=== PATIENT | male | born 1950 | race Caucasian/White ===

== ENCOUNTER → 2016-05-14 | Outpatient (CLI) | payer BC ==
[~2016-05-14] MED LIST: BISA-13 PO; HYDR-2616 PO; OME20GT; QUET200T44 PO; TIMO0.5S32 OP; [UNRECOGNIZED DRUG - CODE] IT
[2016-05-14 09:42] LABS: Basophils # (auto) 0 uL; Basophils % (auto) 0.4 % (0.0-2.0); Eosinophils # (auto) 0.3 uL; Eosinophils % (auto) 4.2 % (0.0-7.0); Hematocrit 49.8 % (41.0-53.0); Hemoglobin 16.3 g/dL (13.5-17.5); Lymphocytes # (auto) 2.7 uL; Lymphocytes % (auto) 33.4 % (10.0-50.0); Mean Corpuscular Hemoglobin 30.7 pg (28.0-32.0); Mean Corpuscular Hgb Conc. 32.8 g/dL (32.0-36.0); Mean Corpuscular Volume 93.8 fL (80.0-100.0); Mean Platelet Volume 8.8 fL (7.4-10.4); Monocytes # (auto) 0.5 uL; Monocytes % (auto) 5.6 % (0.0-12.0); Neutrophils # (auto) 4.6 uL; Neutrophils % (auto) 56.4 % (37.0-80.0); Platelet Count (auto) 255 10^3/uL (140-450); Red Cell Distribution Width 14.4 % (11.6-16.0); White Blood Cell 8.1 10^3/uL (4.4-10.8)
[2016-05-14 09:46] LABS: Urine Bilirubin Negative (Negative); Urine Blood Negative /uL (Negative); Urine Color Yellow (Yellow); Urine Glucose Normal (Normal); Urine Ketone Negative (Negative); Urine Nitrite Negative (Negative); Urine RBC 1 /hpf (0 - 3); Urine Urobilinogen Normal (Negative); Urine pH 6.5 (5.0-8.0)
[2016-05-14 10:24] LABS: Albumin 3.9 g/dL (3.4-5.0); BUN/Creatinine Ratio 11.7; Bilirubin, Total 0.4 mg/dL (0.2-1.0); Calcium 9.5 mg/dL (8.5-10.1); Potassium 4.1 mmol/L (3.5-5.1); Total Protein 7.7 g/dL (6.4-8.2)
== END | disposition home or self-care (01) ==
LOC: LAB 08:53
PROVIDERS: ATTEND Family Medicine
DX: M54.5 Low back pain (principal); Z00.00 Encounter for general adult medical examination without abnormal findings
CPT/HCPCS: 36415; 80053; 80061; 81001; 82607; 84155; 84165; 85025; 85049

== ENCOUNTER → 2017-02-10 | Outpatient (CLI) | payer BC | END | disposition home or self-care (01) | LOC: LAB 10:52 | PROVIDERS: ATTEND Family Medicine | DX: Z12.11 Encounter for screening for malignant neoplasm of colon (principal); J44.9 Chronic obstructive pulmonary disease, unspecified | CPT/HCPCS: 82270 ==

== ENCOUNTER → 2018-02-27 | Outpatient (CLI) | payer BC ==
[2018-02-27 09:46] LABS: Urine Bacteria NONE SEEN /hpf (None Seen); Urine Blood TRACE /uL (Negative); Urine Specific Gravity 1.014 (1.001-1.035); Urine WBC <1 /hpf (0 - 3)
[2018-02-27 09:47] LABS: Basophils # (auto) 0 uL; Basophils % (auto) 0.5 % (0.0-2.0); Eosinophils # (auto) 0.2 uL; Eosinophils % (auto) 3.5 % (0.0-7.0); Hematocrit 50.8 % (41.0-53.0); Lymphocytes # (auto) 2.3 uL; Lymphocytes % (auto) 34.9 % (10.0-50.0); Mean Corpuscular Hgb Conc. 33.4 g/dL (32.0-36.0); Mean Corpuscular Volume 95.9 fL (80.0-100.0); Monocytes # (auto) 0.4 uL; Monocytes % (auto) 6.2 % (0.0-12.0); Neutrophils # (auto) 3.7 uL; Neutrophils % (auto) 54.9 % (37.0-80.0); Platelet Count (auto) 235 10^3/uL (140-450); Red Blood Cells 5.29 10^6/uL (4.5-5.90); Red Cell Distribution Width 13.8 % (11.8-14.3); White Blood Cell 6.7 10^3/uL (4.4-10.8)
[2018-02-27 12:35] LABS: Albumin 3.7 g/dL (3.4-5.0); Calcium 9.5 mg/dL (8.5-10.1); Potassium 4.3 mmol/L (3.5-5.1)
[2018-02-27 12:47] LABS: BUN/Creatinine Ratio 18.4; Bilirubin, Total 0.3 mg/dL (0.2-1.0); Total Protein 8.3 g/dL (6.4-8.2)
== END | disposition home or self-care (01) ==
LOC: LAB 09:21
PROVIDERS: ATTEND Family Medicine
DX: K21.9 Gastro-esophageal reflux disease without esophagitis (principal); F17.200 Nicotine dependence, unspecified, uncomplicated
CPT/HCPCS: 36415; 80053; 80061; 81001; 84153; 85025

== ENCOUNTER 2019-01-14 06:05 | Day surgery (SDC) | payer BC ==
[2019-01-11 10:39] LABS: Urine WBC None Seen /hpf (0 - 3)
[2019-01-11 11:04] LABS: Basophils # (auto) 0.1 uL; Basophils % (auto) 0.7 % (0.0-2.0); Eosinophils # (auto) 0.1 uL; Eosinophils % (auto) 1.9 % (0.0-7.0); Hematocrit 47.2 % (41.0-53.0); Hemoglobin 16.1 g/dL (13.5-17.5); Lymphocytes # (auto) 1.7 uL; Lymphocytes % (auto) 22.7 % (10.0-50.0); Mean Corpuscular Hemoglobin 32.7 pg (28.0-32.0); Mean Corpuscular Hgb Conc. 34.2 g/dL (32.0-36.0); Mean Corpuscular Volume 95.6 fL (80.0-100.0); Monocytes # (auto) 0.5 uL; Monocytes % (auto) 6.4 % (0.0-12.0); Neutrophils # (auto) 5.2 uL; Neutrophils % (auto) 68.3 % (37.0-80.0); Nucleated Red Blood Cells % 0.1 %; Platelet Count (auto) 226 10^3/uL (140-450); Red Blood Cells 4.93 10^6/uL (4.5-5.90); Red Cell Distribution Width 13.5 % (11.8-14.3); White Blood Cell 7.6 10^3/uL (4.4-10.8)
[2019-01-11 11:17] LABS: Potassium 3.8 mmol/L (3.5-5.1)
[2019-01-11 11:20] LABS: INR < 0.93 (0.9-1.15); Partial Thromboplastin Time 27.7 sec (23.64-32.05)
[2019-01-11 11:23] LABS: Albumin 3.6 g/dL (3.4-5.0); BUN/Creatinine Ratio 11.6; Bilirubin, Total 0.3 mg/dL (0.2-1.0); Calcium 8.9 mg/dL (8.5-10.1); Total Protein 7.9 g/dL (6.4-8.2)
[2019-01-11 11:35] LABS: Urine Bacteria NONE SEEN /hpf (None Seen); Urine Blood TRACE /uL (Negative); Urine Specific Gravity 1.013 (1.001-1.035)
[~2019-01-14] VITALS: Ht 162.6 cm; Wt 68.0 kg
[~2019-01-14 06:05] MED LIST changes: -BISA-13 PO; +DOCU-94 PO; -HYDR-2616 PO; +HYDR1INJ IT; -OME20GT; -TIMO0.5S32 OP
[2019-01-14] MEDS ORDERED: ceFAZolin 1GM/50ML 100 ML IV ONE (06:51)
[2019-01-14] MEDS ORDERED: SUCCINYLCHOLINE CHLORIDE 20 MG/ML 10ML VIAL IV ONE (07:31)
[2019-01-14] MEDS ORDERED: LIDOCAINE 1% HCL (LOCAL ANESTH.) INJ 20ML MDV ONE (07:31)
[2019-01-14] MEDS ORDERED: LIDOCAINE W/ EPINEPHRINE 2% INJ 20ML VIAL ONE (07:32)
[2019-01-14] MEDS ORDERED: IOHEXOL 180 MG/ML 20ML VIAL IJ ONE (07:32)
[2019-01-14] MEDS ORDERED: IOHEXOL 300 MG/ML 100ML BOTTLE IJ ONE (07:33)
[2019-01-14] MEDS ORDERED: BUPIVACAINE W/ EPINEPH 0.25% INJ 50ML MDV ONE (07:33)
[2019-01-14] MEDS ORDERED: MORPHINE SULF(PF) 0.5MG/ML 10ML VIAL ONE (07:39)
[2019-01-14] MEDS ORDERED: VANCOMYCIN HCL 1000 MG VL ONE (07:42)
[2019-01-14] MEDS ORDERED: MIDAZOLAM HCL 1MG/1ML-2 ML VIAL ONE (07:55)
[2019-01-14] MEDS ORDERED: METOCLOPRAMIDE HCL 5MG/ml INJ 2ml VIAL ONE (07:56)
[2019-01-14] MEDS ORDERED: diphenhdrAMINE HCL 50 MG/1 ML VL ONE (07:56)
[2019-01-14] MEDS ORDERED: GLYCOPYRROLATE 0.2 MG/ML 1ML VIAL ONE (07:58)
[2019-01-14] MEDS ORDERED: PROPOFOL 10 MG/ML 20 ML IV ONE (07:59)
[2019-01-14] MEDS ORDERED: ceFAZolin 1GM VL ONE (08:14)
[2019-01-14] MEDS ORDERED: ePHEDrine SULFATE 50 MG/ML AMP ONE (08:17)
[2019-01-14] MEDS ORDERED: STERILE WATER 10 ML ONE ×2 (08:17→08:27)
[2019-01-14] MEDS ORDERED: PHENYLEPHRINE HCL 10 MG/ML VL ONE (08:27)
[2019-01-14] MEDS ORDERED: HYDROmorphone HCL 2 MG/ML VL IV PRN (08:45)
[2019-01-14] MEDS ORDERED: NALOXONE HCL 0.4 MG/ML VIAL IV PRN (08:45)
[2019-01-14] MEDS ORDERED: ONDANSETRON HCL 4 MG/2 ML VIAL IV PRN (08:45)
[2019-01-14] MEDS ORDERED: HYDROmorphone HCL 2 MG/ML VL IV ONE (10:06)
[2019-01-14] MEDS ORDERED: BACLOFEN 10 MG TAB PO ONE (10:23)
[2019-01-14] MEDS: HYDROmorphone HCL 2 MG/ML VL IV PRN ×4 (10:28→11:15)
[2019-01-14] MEDS ORDERED: GABAPENTIN 400 MG CAP PO ONE (11:15)
[2019-01-14] MEDS ORDERED: DexAMETHasone SOD PHOS 10MG/1ML VIAL INJ IM ONE (12:00)
[2019-01-14 12:08] VITALS: BP 113/63
== END 2019-01-14 12:40 | disposition home or self-care (01) ==
LOC: SUR 06:05
PROVIDERS: ATTEND Anesthesiology Pain Medicine
DX: Z45.49 Encounter for adjustment and management of other implanted nervous system device (principal); T85.610A Breakdown (mechanical) of cranial or spinal infusion catheter, initial encounter; M96.1 Postlaminectomy syndrome, not elsewhere classified; M54.40 Lumbago with sciatica, unspecified side; M06.9 Rheumatoid arthritis, unspecified; I25.10 Atherosclerotic heart disease of native coronary artery without angina pectoris; F32.9 Major depressive disorder, single episode, unspecified; F17.210 Nicotine dependence, cigarettes, uncomplicated; Z88.8 Allergy status to other drugs, medicaments and biological substances
CPT/HCPCS: 36415; 62350; 62362; 62370; 72100; 80053; 81001; 85025; 85610; 85730; 93005; C1772; J0330; J0690; J1170; J1200; J2001; J2250; J2270; J2370; J2704; J2765; J3370; J7030; Q9967; 76000; A4565; Q9965

== ENCOUNTER → 2019-10-26 | Outpatient (CLI) | payer BC ==
[2019-10-26 08:09] LABS: Urine WBC None Seen /hpf (0 - 3)
[2019-10-26 08:25] LABS: Urine Bacteria NONE SEEN /hpf (None Seen); Urine Blood TRACE /uL (Negative); Urine Specific Gravity 1.007 (1.001-1.035)
[2019-10-26 08:31] LABS: Basophils # (auto) 0 10 ^3/uL (0-0.2); Basophils % (auto) 0.6 % (0.0-2.0); Eosinophils # (auto) 0.3 10 ^3/uL (0-0.8); Eosinophils % (auto) 4.8 % (0.0-7.0); Hemoglobin 16.6 g/dL (13.5-17.5); Lymphocytes # (auto) 2.2 10 ^3/uL (0.4-5.4); Lymphocytes % (auto) 37.6 % (10.0-50.0); Mean Corpuscular Hemoglobin 31.5 pg (28.0-32.0); Mean Corpuscular Hgb Conc. 33.1 g/dL (32.0-36.0); Mean Corpuscular Volume 95.1 fL (80.0-100.0); Monocytes # (auto) 0.4 10 ^3/uL (0-1.3); Monocytes % (auto) 7.3 % (0.0-12.0); Neutrophils # (auto) 2.9 10 ^3/uL (1.6-8.6); Neutrophils % (auto) 49.7 % (37.0-80.0); Nucleated Red Blood Cells % 0.1 %; Platelet Count (auto) 262 10^3/uL (140-450); Red Blood Cells 5.26 10^6/uL (4.5-5.90); Red Cell Distribution Width 14.2 % (11.8-14.3); White Blood Cell 5.8 10^3/uL (4.4-10.8)
[2019-10-26 08:39] LABS: Potassium 4.1 mmol/L (3.5-5.1)
[2019-10-26 08:46] LABS: Albumin 3.4 g/dL (3.4-5.0); BUN/Creatinine Ratio 9.1; Bilirubin, Total 0.4 mg/dL (0.2-1.0); Calcium 9.1 mg/dL (8.5-10.1); Total Protein 7.9 g/dL (6.4-8.2)
[2019-10-26 09:11] LABS: INR 0.95 (0.9-1.15); Partial Thromboplastin Time 27.9 sec (23.64-32.05)
== END | disposition home or self-care (01) ==
LOC: LAB 07:20
PROVIDERS: ATTEND Family Medicine
DX: Z01.818 Encounter for other preprocedural examination (principal); H25.11 Age-related nuclear cataract, right eye
CPT/HCPCS: 36415; 80053; 81001; 85025; 85610; 85730

== ENCOUNTER → 2020-06-22 | Outpatient (CLI) | payer BC | END | disposition home or self-care (01) | LOC: XYW 09:53 | PROVIDERS: ATTEND Family Medicine | DX: M51.34 Other intervertebral disc degeneration, thoracic region (principal); M48.04 Spinal stenosis, thoracic region; M51.26 Other intervertebral disc displacement, lumbar region; M48.061 Spinal stenosis, lumbar region without neurogenic claudication; M25.78 Osteophyte, vertebrae; M43.8X4 Other specified deforming dorsopathies, thoracic region; M48.54XA Collapsed vertebra, not elsewhere classified, thoracic region, initial encounter for fracture; M54.40 Lumbago with sciatica, unspecified side; M96.1 Postlaminectomy syndrome, not elsewhere classified; Z98.1 Arthrodesis status | CPT/HCPCS: 72146; 72148 ==

== ENCOUNTER 2020-06-23 09:08 | Emergency (ER) | payer BC ==
[~2020-06-23] VITALS: Ht 162.6 cm; Wt 63.5 kg
[~2020-06-23 09:08] MED LIST changes: -QUET200T44 PO; +QUET200T45 PO
[2020-06-23 09:35] LABS: Basophils # (auto) 0.1 10 ^3/uL (0-0.2); Basophils % (auto) 1.4 % (0.0-2.0); Eosinophils # (auto) 0.1 10 ^3/uL (0-0.8); Hematocrit 45.3 % (41.0-53.0); Hemoglobin 15.6 g/dL (13.5-17.5); Lymphocytes # (auto) 1.3 10 ^3/uL (0.4-5.4); Mean Corpuscular Hemoglobin 31.8 pg (28.0-32.0); Mean Corpuscular Hgb Conc. 34.5 g/dL (32.0-36.0); Mean Corpuscular Volume 92.2 fL (80.0-100.0); Monocytes # (auto) 0.5 10 ^3/uL (0-1.3); Monocytes % (auto) 7.5 % (0.0-12.0); Neutrophils # (auto) 4.2 10 ^3/uL (1.6-8.6); Neutrophils % (auto) 68.1 % (37.0-80.0); Nucleated Red Blood Cells % 0.1 %; Red Blood Cells 4.92 10^6/uL (4.5-5.90); Red Cell Distribution Width 14.5 % (11.8-14.3); White Blood Cell 6.1 10^3/uL (4.4-10.8)
[2020-06-23 09:53] LABS: Albumin 3.4 g/dL (3.4-5.0); Calcium 8.9 mg/dL (8.5-10.1); Potassium 3.6 mmol/L (3.5-5.1)
[2020-06-23 09:56] LABS: BUN/Creatinine Ratio 8.7; Bilirubin, Total 0.3 mg/dL (0.2-1.0); Total Protein 7.6 g/dL (6.4-8.2)
[2020-06-23 11:47] VITALS: BP 36/75
== END 2020-06-23 11:43 | disposition home or self-care (01) ==
LOC: ER 09:08
DX: M54.5 Low back pain (principal); G89.29 Other chronic pain; F17.210 Nicotine dependence, cigarettes, uncomplicated; J44.9 Chronic obstructive pulmonary disease, unspecified; Z79.899 Other long term (current) drug therapy
CPT/HCPCS: 36415; 74176; 80053; 85025; 93005

== ENCOUNTER 2021-02-26 16:44 | Emergency (ER) | payer BC, MEDICARE ==
[~2021-02-26] VITALS: Ht 162.6 cm; Wt 74.8 kg
[2021-02-26 18:59] VITALS: BP 140/96
== END 2021-02-26 21:33 | disposition home or self-care (01) ==
LOC: EDBD 16:44 → ER 16:44
DX: S01.95XA Open bite of unspecified part of head, initial encounter (principal); M54.2 Cervicalgia; M54.9 Dorsalgia, unspecified; J44.9 Chronic obstructive pulmonary disease, unspecified; F17.210 Nicotine dependence, cigarettes, uncomplicated; Y04.1XXA Assault by human bite, initial encounter; Y93.89 Activity, other specified; Y92.89 Other specified places as the place of occurrence of the external cause; Y99.8 Other external cause status
CPT/HCPCS: 70450; 72125

== ENCOUNTER → 2021-07-19 | Outpatient (CLI) | payer BC ==
[2021-07-19 08:23] LABS: Basophils # (auto) 0 10 ^3/uL (0-0.2); Basophils % (auto) 0.2 % (0.0-2.0); Eosinophils # (auto) 0.2 10 ^3/uL (0-0.8); Hemoglobin 15.6 g/dL (13.5-17.5); Lymphocytes # (auto) 0.6 10 ^3/uL (0.4-5.4); Mean Corpuscular Hemoglobin 30.7 pg (28.0-32.0); Mean Corpuscular Hgb Conc. 33.9 g/dL (32.0-36.0); Mean Corpuscular Volume 90.6 fL (80.0-100.0); Monocytes # (auto) 0.2 10 ^3/uL (0-1.3); Monocytes % (auto) 3.9 % (0.0-12.0); Neutrophils # (auto) 4.1 10 ^3/uL (1.6-8.6); Neutrophils % (auto) 79.9 % (37.0-80.0); Nucleated Red Blood Cells % 0.1 %; Red Blood Cells 5.08 10^6/uL (4.5-5.90); White Blood Cell 5.1 10^3/uL (4.4-10.8)
[2021-07-19 09:19] LABS: Albumin 3.4 g/dL (3.4-5.0); Potassium 4.2 mmol/L (3.5-5.1)
[2021-07-19 09:27] LABS: BUN/Creatinine Ratio 10.8; Bilirubin, Total 0.3 mg/dL (0.2-1.0); Calcium 9.2 mg/dL (8.5-10.1); Total Protein 7.7 g/dL (6.4-8.2)
== END | disposition home or self-care (01) ==
LOC: LAB 07:53
PROVIDERS: ATTEND Student in an Organized Health Care Education/Training Program
DX: Z01.812 Encounter for preprocedural laboratory examination (principal); Z12.11 Encounter for screening for malignant neoplasm of colon; I10 Essential (primary) hypertension; H25.11 Age-related nuclear cataract, right eye
CPT/HCPCS: 36415; 80053; 80061; 85025

== ENCOUNTER → 2021-11-12 | Outpatient (CLI) | payer BC | END | disposition home or self-care (01) | LOC: LAB 09:49 | PROVIDERS: ATTEND Student in an Organized Health Care Education/Training Program | DX: Z12.11 Encounter for screening for malignant neoplasm of colon (principal) | CPT/HCPCS: 82274 ==

== ENCOUNTER 2022-04-08 08:56 | Emergency (ER) | payer BC ==
[~2022-04-08] VITALS: Ht 162.6 cm; Wt 73.7 kg
[2022-04-08 11:35] VITALS: BP 118/81
[2022-04-08] MEDS ORDERED: TETRACAINE HCL 0.5% OPTH(EYE) SOLN 4ML LEFTEYE ONE (12:00)
[2022-04-08] MEDS ORDERED: ERY05OO OP (12:38)
== END 2022-04-08 12:44 | disposition home or self-care (01) ==
LOC: ER 08:56
DX: S05.02XA Injury of conjunctiva and corneal abrasion without foreign body, left eye, initial encounter (principal); J44.9 Chronic obstructive pulmonary disease, unspecified; F17.210 Nicotine dependence, cigarettes, uncomplicated; Z79.2 Long term (current) use of antibiotics; Z79.899 Other long term (current) drug therapy; X58.XXXA Exposure to other specified factors, initial encounter; Y93.89 Activity, other specified; Y92.89 Other specified places as the place of occurrence of the external cause; Y99.8 Other external cause status

== ENCOUNTER 2023-09-05 23:16 | Inpatient (IN) | payer BC, MEDICARE ==
[~2023-09-05] VITALS: Ht 165.1 cm; Wt 77.0 kg
[~2023-09-05 23:16] MED LIST changes: +ERY05OO OP
[2023-09-06] VITALS (15 sets, daily range): BP systolic 121–160; BP diastolic 59–84; PULSE 56–75; RESP 16–21; TEMP 97.6–99; O2SAT 93–99
[2023-09-06] MEDS ORDERED: DOCUSATE SOD 100 MG CAP PO PRN (02:45)
[2023-09-06] MEDS ORDERED: ONDANSETRON HCL 4 MG/2 ML VIAL IV PRN (02:45)
[2023-09-06] MEDS ORDERED: MORPHINE SULFATE INJ 2 MG/ml SYRG IV PRN (02:45)
[2023-09-06] MEDS ORDERED: VANCOMYCIN PER PHARMACY 0 MG IV SCH (02:45)
[2023-09-06] MEDS ORDERED: ACETAMINOPHEN 325 MG TAB PO PRN (02:45)
[2023-09-06] MEDS ORDERED: NITROGLYCERIN 0.4 MG SL TAB SL PRN (02:45)
[2023-09-06] MEDS: SODIUM CHLORIDE 0.9% 1,000 ML IV ONE (04:00)
[2023-09-06] MEDS: VANCOMYCIN 1GM/200ML 200 ML IV ONE (06:50)
[2023-09-06] MEDS: PIPERACILLIN-TAZOB 3.375GM 100 ML IV ONE (06:53)
[2023-09-06] MEDS: IPRATROPIUM BROM 0.5 MG/2.5ML INH SOL NEB SCH (08:13)
[2023-09-06] MEDS: ALBUTEROL SULF 2.5 MG/0.5ML(0.5%) NEB SOLN NEB SCH (08:13)
[2023-09-06] MEDS: ENOXAPARIN SOD 40 MG/0.4 ML SYRINGE SC SCH (08:41)
[2023-09-06 11:56] LABS: Basophils # (auto) 0 10 ^3/uL (0-0.2); Basophils % (auto) 0.5 % (0.0-2.0); Eosinophils # (auto) 0.1 10 ^3/uL (0-0.8); Eosinophils % (auto) 1.8 % (0.0-7.0); Hemoglobin 13.2 g/dL (13.5-17.5); Lymphocytes # (auto) 1.1 10 ^3/uL (0.4-5.4); Lymphocytes % (auto) 13.9 % (10.0-50.0); Mean Corpuscular Hemoglobin 30.6 pg (28.0-32.0); Mean Corpuscular Hgb Conc. 32.9 g/dL (32.0-36.0); Mean Corpuscular Volume 93.1 fL (80.0-100.0); Monocytes # (auto) 0.5 10 ^3/uL (0-1.3); Monocytes % (auto) 6.3 % (0.0-12.0); Neutrophils # (auto) 6.4 10 ^3/uL (1.6-8.6); Neutrophils % (auto) 77.5 % (37.0-80.0); Nucleated Red Blood Cells % 0.2 %; White Blood Cell 8.3 10^3/uL (4.4-10.8)
[2023-09-06 12:00] LABS: Chloride 109 mmol/L (98-107); Potassium 4.7 mmol/L (3.5-5.1); Sodium 139 mmol/L (136-145)
[2023-09-06 12:01] LABS: Anion Gap 3 (5-15); Carbon Dioxide 27 mmol/L (20-30)
[2023-09-06 12:06] LABS: BUN/Creatinine Ratio 15.1 (10.0-20.0); Blood Urea Nitrogen 11 mg/dL (9-23); Glucose 98 mg/dL (74-106)
[2023-09-06 12:14] LABS: Lactic Acid w/Reflex 2.2 mmol/L (0.4-2.0)
[2023-09-06] MEDS ORDERED: IPRATROPIUM BROM 0.5 MG/2.5ML INH SOL NEB PRN (13:15)
[2023-09-06] MEDS ORDERED: ALBUTEROL SULF 2.5 MG/0.5ML(0.5%) NEB SOLN NEB PRN (13:15)
[2023-09-06] MEDS: PIPERACILLIN-TAZOB 3.375GM 100 ML IV SCH (13:42)
[2023-09-06] MEDS: SODIUM CHLORIDE 0.9% 1,000 ML IV SCH (13:43)
[2023-09-06] MEDS: VANCOMYCIN 1GM/200ML 200 ML IV SCH (16:54)
[2023-09-07] VITALS (9 sets, daily range): BP systolic 93–142; BP diastolic 49–72; PULSE 52–66; RESP 16–20; TEMP 97.7–98.5; O2SAT 92–99
[2023-09-07 05:39] LABS: Basophils # (auto) 0 10 ^3/uL (0-0.2); Basophils % (auto) 0.5 % (0.0-2.0); Eosinophils # (auto) 0.3 10 ^3/uL (0-0.8); Eosinophils % (auto) 3.3 % (0.0-7.0); Hematocrit 40.5 % (41.0-53.0); Hemoglobin 13.6 g/dL (13.5-17.5); Lymphocytes # (auto) 1.4 10 ^3/uL (0.4-5.4); Lymphocytes % (auto) 17.5 % (10.0-50.0); Mean Corpuscular Hemoglobin 30.3 pg (28.0-32.0); Mean Corpuscular Hgb Conc. 33.6 g/dL (32.0-36.0); Mean Corpuscular Volume 90.2 fL (80.0-100.0); Monocytes # (auto) 0.6 10 ^3/uL (0-1.3); Monocytes % (auto) 6.8 % (0.0-12.0); Neutrophils # (auto) 5.9 10 ^3/uL (1.6-8.6); Neutrophils % (auto) 71.9 % (37.0-80.0); Nucleated Red Blood Cells % 0.1 %; Red Blood Cells 4.49 10^6/uL (4.5-5.90); Red Cell Distribution Width 14.1 % (11.8-14.3); White Blood Cell 8.2 10^3/uL (4.4-10.8)
[2023-09-07 05:43] LABS: Anion Gap 8 (5-15); Carbon Dioxide 23 mmol/L (20-30); Chloride 109 mmol/L (98-107); Potassium 3.8 mmol/L (3.5-5.1); Sodium 140 mmol/L (136-145)
[2023-09-07 05:44] LABS: Calcium 9.1 mg/dL (8.7-10.4)
[2023-09-07 05:49] LABS: BUN/Creatinine Ratio 16.4 (10.0-20.0); Blood Urea Nitrogen 12 mg/dL (9-23); Glucose 80 mg/dL (74-106)
[2023-09-08] VITALS (9 sets, daily range): BP systolic 114–151; BP diastolic 53–84; PULSE 55–74; RESP 18–22; TEMP 97.7–98.7; O2SAT 94–98
[2023-09-08 06:02] LABS: Basophils # (auto) 0.1 10 ^3/uL (0-0.2); Basophils % (auto) 0.8 % (0.0-2.0); Eosinophils # (auto) 0.3 10 ^3/uL (0-0.8); Eosinophils % (auto) 5.8 % (0.0-7.0); Hematocrit 39.4 % (41.0-53.0); Hemoglobin 13.1 g/dL (13.5-17.5); Lymphocytes # (auto) 1.5 10 ^3/uL (0.4-5.4); Lymphocytes % (auto) 25.1 % (10.0-50.0); Mean Corpuscular Hemoglobin 30.5 pg (28.0-32.0); Mean Corpuscular Hgb Conc. 33.4 g/dL (32.0-36.0); Mean Corpuscular Volume 91.3 fL (80.0-100.0); Monocytes # (auto) 0.5 10 ^3/uL (0-1.3); Neutrophils # (auto) 3.6 10 ^3/uL (1.6-8.6); Neutrophils % (auto) 59.3 % (37.0-80.0); Nucleated Red Blood Cells % 0.1 %; Red Blood Cells 4.31 10^6/uL (4.5-5.90); Red Cell Distribution Width 13.8 % (11.8-14.3)
[2023-09-08 06:15] LABS: Chloride 109 mmol/L (98-107); Sodium 138 mmol/L (136-145)
[2023-09-08 06:16] LABS: Anion Gap 5 (5-15); Calcium 8.6 mg/dL (8.5-10.1); Carbon Dioxide 24 mmol/L (20-30)
[2023-09-08 06:21] LABS: BUN/Creatinine Ratio 10.5 (10.0-20.0); Blood Urea Nitrogen 8 mg/dL (9-23); Glucose 98 mg/dL (74-106)
[2023-09-08] MEDS: HYDROcodone-ACET 5/325MG TAB PO PRN (11:28)
[2023-09-08] MEDS: BUMETANIDE 2.5mg/10ml (0.25 mg/ml) INJ IV ONE (14:08)
[2023-09-08] MEDS: BUMETANIDE 2.5mg/10ml (0.25 mg/ml) INJ IV SCH (17:45)
[2023-09-08] MEDS: POTASSIUM CHL 10 Meq TABLET PO SCH (21:00)
[2023-09-08] MEDS: VANCOMYCIN 1GM/200ML 200 ML IV SCH (21:00)
[2023-09-09] VITALS (10 sets, daily range): BP systolic 110–144; BP diastolic 66–81; PULSE 55–80; RESP 18–20; TEMP 97.7–98.8; O2SAT 93–98
[2023-09-09 05:31] LABS: Basophils # (auto) 0 10 ^3/uL (0-0.2); Basophils % (auto) 0.7 % (0.0-2.0); Eosinophils # (auto) 0.4 10 ^3/uL (0-0.8); Eosinophils % (auto) 5.9 % (0.0-7.0); Hematocrit 42.7 % (41.0-53.0); Hemoglobin 14.2 g/dL (13.5-17.5); Lymphocytes # (auto) 1.6 10 ^3/uL (0.4-5.4); Lymphocytes % (auto) 25.7 % (10.0-50.0); Mean Corpuscular Hemoglobin 30.2 pg (28.0-32.0); Mean Corpuscular Hgb Conc. 33.2 g/dL (32.0-36.0); Mean Corpuscular Volume 90.9 fL (80.0-100.0); Monocytes # (auto) 0.6 10 ^3/uL (0-1.3); Monocytes % (auto) 9.6 % (0.0-12.0); Neutrophils # (auto) 3.6 10 ^3/uL (1.6-8.6); Neutrophils % (auto) 58.1 % (37.0-80.0); Nucleated Red Blood Cells % 0.2 %; Red Cell Distribution Width 14.1 % (11.8-14.3); White Blood Cell 6.3 10^3/uL (4.4-10.8)
[2023-09-09 05:32] LABS: Anion Gap 5 (5-15); Carbon Dioxide 26 mmol/L (20-30); Chloride 106 mmol/L (98-107); Potassium 3.9 mmol/L (3.5-5.1); Sodium 137 mmol/L (136-145)
[2023-09-09 05:33] LABS: Calcium 9.1 mg/dL (8.5-10.1)
[2023-09-09 05:38] LABS: Blood Urea Nitrogen 6 mg/dL (9-23); Glucose 86 mg/dL (74-106)
== END 2023-09-09 22:00 | DRG 603 ==
LOC: WEST WING 09-06 02:20
PROVIDERS: ADMIT Nurse Practitioner Family; ATTEND Nurse Practitioner Family
DX: L03.116 Cellulitis of left lower limb (principal); E87.20 Acidosis, unspecified; G89.29 Other chronic pain; J44.9 Chronic obstructive pulmonary disease, unspecified; M54.50 Low back pain, unspecified; B96.5 Pseudomonas (aeruginosa) (mallei) (pseudomallei) as the cause of diseases classified elsewhere; I11.0 Hypertensive heart disease with heart failure; I50.9 Heart failure, unspecified
CPT/HCPCS: 36415; 73700; 80048; 80202; 83605; 85025; 87040; 87077; 87186; 87205; 93306; 93925; 93970; 94640; 96365; 96375; 97163; G0378; J2543

== ENCOUNTER 2023-09-14 04:56 | Inpatient (IN) | payer BC ==
[~2023-09-14] VITALS: Ht 172.7 cm; Wt 72.3 kg
[~2023-09-14 04:56] MED LIST changes: +CEPH500C PO; +DOXY100C4 PO; +LEVO500T91 PO
[2023-09-14 05:19] VITALS: PULSE 76; RESP 17; O2SAT 95
[2023-09-14] MEDS: ACETAMINOPHEN 325 MG TAB PO ONE (05:59)
[2023-09-14 06:10] LABS: Urine Bacteria None Seen /hpf (None Seen)
[2023-09-14 06:26] LABS: Amphetamine Screen, Urine Neg (NEGATIVE)
[2023-09-14 06:27] LABS: Benzodiazephine Screen, Urine Neg (NEGATIVE)
[2023-09-14 06:28] LABS: Barbiturate Scree,Urine Neg (NEGATIVE); Cannabinoid Screen, Urine Neg (NEGATIVE); Cocaine Screen, Urine Neg (NEGATIVE); Opiate Scree,Urine Pos (NEGATIVE); Phencyclidine Screen, Urine Neg (NEGATIVE)
[2023-09-14 06:31] LABS: Basophils # (auto) 0.1 10 ^3/uL (0-0.2); Basophils % (auto) 1.3 % (0.0-2.0); Eosinophils # (auto) 0 10 ^3/uL (0-0.8); Eosinophils % (auto) 0.2 % (0.0-7.0); Hematocrit 39.9 % (41.0-53.0); Hemoglobin 13.3 g/dL (13.5-17.5); Lymphocytes # (auto) 0.3 10 ^3/uL (0.4-5.4); Lymphocytes % (auto) 3.5 % (10.0-50.0); Mean Corpuscular Hemoglobin 30.3 pg (28.0-32.0); Mean Corpuscular Hgb Conc. 33.3 g/dL (32.0-36.0); Mean Corpuscular Volume 90.8 fL (80.0-100.0); Monocytes # (auto) 0.3 10 ^3/uL (0-1.3); Monocytes % (auto) 4.2 % (0.0-12.0); Neutrophils # (auto) 6.9 10 ^3/uL (1.6-8.6); Neutrophils % (auto) 90.8 % (37.0-80.0); Red Blood Cells 4.39 10^6/uL (4.5-5.90); Red Cell Distribution Width 14.4 % (11.8-14.3); White Blood Cell 7.6 10^3/uL (4.4-10.8)
[2023-09-14 06:37] LABS: Urine Blood Negative /uL (Negative); Urine Budding Yeast OCCASIONAL /hpf (None Seen); Urine Clarity Clear (Clear); Urine Color Yellow (Yellow); Urine Mucus FEW (None Seen); Urine Protein, UAD TRACE (Negative); Urine Specific Gravity 1.025 (1.001-1.035); Urine Urobilinogen Normal (Negative); Urine WBC 3 /hpf (0 - 3); Urine pH 5.5 (5.0-9.0)
[2023-09-14 06:50] LABS: Alanine Aminotransferase 36 U/L (7-40); Albumin 3.7 g/dL (3.2-4.8); Alkaline Phosphatase 143 U/L (46-116); Anion Gap 5 (5-15); Aspartate Aminotransferase 46 U/L (13-40); BUN/Creatinine Ratio 21.3 (10.0-20.0); Bilirubin, Total 0.4 mg/dL (0.2-1.0); Blood Alcohol < 3.0 mg/dL (<10); Blood Urea Nitrogen 19 mg/dL (9-23); Calcium 9.1 mg/dL (8.5-10.1); Carbon Dioxide 29 mmol/L (20-30); Chloride 105 mmol/L (98-107); Glucose 117 mg/dL (74-106); Potassium 4.2 mmol/L (3.5-5.1); Sodium 139 mmol/L (136-145); Total Protein 6.5 g/dL (5.7-8.2)
[2023-09-14] MEDS: cefTRIAXone 1GM/50ML D5W 50 ML IV ONE (07:55)
[2023-09-14 08:00] VITALS: PULSE 57; RESP 22; O2SAT 95
[2023-09-14] MEDS: CLINDAMYCIN 600MG IV 50 ML IV ONE (08:17)
[2023-09-14] MEDS ORDERED: ACETAMINOPHEN 325 MG TAB PO PRN (13:45)
[2023-09-14] MEDS ORDERED: MORPHINE SULFATE INJ 2 MG/ml SYRG IV PRN (13:45)
[2023-09-14] MEDS ORDERED: VANCOMYCIN PER PHARMACY 0 MG IV SCH (13:45)
[2023-09-14] MEDS: VANCOMYCIN 1GM/200ML 200 ML IV ONE (15:15)
[2023-09-14] MEDS: FUROSEMIDE 40 MG/4 ML VIAL IV SCH (15:59)
[2023-09-14] MEDS: PIPERACILLIN-TAZOB 3.375GM 100 ML IV SCH (16:52)
[2023-09-14 17:49] VITALS: BP 146/75; PULSE 63; RESP 16; RESP 20; TEMP 98; O2SAT 98
[2023-09-14 20:00] VITALS: PULSE 88; RESP 19; O2SAT 93
[2023-09-14 21:26] VITALS: BP 122/62; PULSE 88; RESP 19; TEMP 99.3; O2SAT 93
[2023-09-15] VITALS (7 sets, daily range): BP systolic 104–135; BP diastolic 60–77; PULSE 66–107; RESP 17–22; TEMP 98–98.8; O2SAT 90–95
[2023-09-15] MEDS: VANCOMYCIN 1GM/200ML 200 ML IV SCH (05:35)
[2023-09-15] MEDS: ENOXAPARIN SOD 40 MG/0.4 ML SYRINGE SC SCH (10:00)
[2023-09-15] MEDS: ONDANSETRON HCL 4 MG/2 ML VIAL IV PRN (10:34)
[2023-09-15] MEDS ORDERED: BUME2TAB5 PO (11:01)
[2023-09-15] MEDS ORDERED: IPR002IS INH (11:01)
[2023-09-15] MEDS ORDERED: ALBU0.084 NEB (11:01)
[2023-09-15] MEDS ORDERED: POTA-36 PO (11:01)
[2023-09-16] VITALS (8 sets, daily range): BP systolic 98–113; BP diastolic 50–71; PULSE 60–92; RESP 16–21; TEMP 97.9–98.8; O2SAT 91–97
[2023-09-16] MEDS: HYDROcodone-ACET 5/325MG TAB PO PRN (00:04)
[2023-09-16] MEDS: DOCUSATE SOD 100 MG CAP PO PRN (21:27)
[2023-09-17] VITALS (8 sets, daily range): BP systolic 96–135; BP diastolic 43–66; PULSE 58–82; RESP 16–20; TEMP 97.8–98.4; O2SAT 91–96
[2023-09-17 07:09] LABS: Basophils # (auto) 0 10 ^3/uL (0-0.2); Basophils % (auto) 0.4 % (0.0-2.0); Eosinophils # (auto) 0.3 10 ^3/uL (0-0.8); Eosinophils % (auto) 7.8 % (0.0-7.0); Hematocrit 41.4 % (41.0-53.0); Hemoglobin 13.9 g/dL (13.5-17.5); Lymphocytes # (auto) 1.1 10 ^3/uL (0.4-5.4); Lymphocytes % (auto) 26.7 % (10.0-50.0); Mean Corpuscular Hemoglobin 30.5 pg (28.0-32.0); Mean Corpuscular Hgb Conc. 33.6 g/dL (32.0-36.0); Mean Corpuscular Volume 90.8 fL (80.0-100.0); Monocytes # (auto) 0.5 10 ^3/uL (0-1.3); Monocytes % (auto) 13.4 % (0.0-12.0); Neutrophils # (auto) 2.1 10 ^3/uL (1.6-8.6); Neutrophils % (auto) 51.7 % (37.0-80.0); Nucleated Red Blood Cells % 0.3 %; Red Blood Cells 4.56 10^6/uL (4.5-5.90); Red Cell Distribution Width 13.8 % (11.8-14.3); White Blood Cell 4.1 10^3/uL (4.4-10.8)
[2023-09-18] VITALS (8 sets, daily range): BP systolic 97–114; BP diastolic 50–67; PULSE 56–105; RESP 15–20; TEMP 36.7; O2SAT 91–96
== END 2023-09-18 20:10 | DRG 602 ==
LOC: EDBD 04:56 → ER 04:56 → OVERFLOW 13:39 → EAST 17:42
PROVIDERS: ADMIT Internal Medicine; ATTEND Internal Medicine
DX: L03.115 Cellulitis of right lower limb (principal); G93.41 Metabolic encephalopathy; L03.116 Cellulitis of left lower limb; F31.9 Bipolar disorder, unspecified; I50.9 Heart failure, unspecified; F17.210 Nicotine dependence, cigarettes, uncomplicated; J44.89 Other specified chronic obstructive pulmonary disease; Z82.0 Family history of epilepsy and other diseases of the nervous system; Z79.899 Other long term (current) drug therapy
CPT/HCPCS: 36415; 70450; 71045; 80053; 80202; 80307; 80320; 81001; 82140; 82565; 83605; 83880; 84484; 85025; 87040; 93005; 93925; 93971; 96365; 97110; 97116; 97163; G0378; J2405; J2543; J3490

== ENCOUNTER 2024-06-20 03:46 | Inpatient (IN) | payer BC, MEDICAID ==
[~2024-06-20] VITALS: Ht 162.6 cm; Wt 75.8 kg
[~2024-06-20 03:46] MED LIST changes: +ALBU0.084 NEB; +BUME2TAB5 PO; -CEPH500C PO; -DOCU-94 PO; -DOXY100C4 PO; -ERY05OO OP; -HYDR1INJ IT; +IPR002IS INH; -LEVO500T91 PO; +POTA-36 PO; -QUET200T45 PO; -[UNRECOGNIZED DRUG - CODE] IT
--- NOTE | 2024-06-20 04:15 | ED.PDOC ---
Back pain HPI HPI Comments This is a 73-year-old male presents to the ED via ambulance chief complaint status post fall x2 today. Patient states slip and fall today while using his walker first-time falling on his left side, left hip then right side right hip. Cleaning of bilateral hip pain and lower back pain 8/10 on pain scale sharp shooting pain across his lower back, left lateral and right lateral hip pain shooting into his bilateral groin. In route patient was given fentanyl 100 mics IM reports some relief 4/10 on pain scale. Denies numbness, weakness, saddle anesthesia, loss of bowel or bladder control, chest pain, shortness of breath, dizziness, nausea, vomiting, fever or chills. In addition, on physical exam, noted odor, from patient's lower legs, after removal of patient's socks noted moderate to severe erythema with multiple open lesions, purulent drainage, warmth to touch. Patient states history of bilateral lower broken legs with chronic cellulitis. Chief Complaint: Lower Extremity Time Seen by MD: 03:54 Primary Care Provider: NORIS Reviewed Notes: Nurses Notes, Newspaper Journalist Notes, Medications, Allergies Allergies: Coded Allergies: NO KNOWN ALLERGIES (Unverified , 01/11/19) Home Meds Reported Medications Albuterol Sulfate (Albuterol Sulfate) 0.083 % Neb, NEB 09/15/23 Ipratropium [place] (Ipratropium [place]) 0.02 % [place], INH 09/15/23 Potassium Chloride (POTASSIUM CHLORIDE CR) 10 Meq Tb, 1 TAB PO BID 09/15/23 Bumetanide (Bumetanide) 2 Mg Tab, 1 MG PO BID 09/15/23 Information Source: Patient Mode of Arrival: EMS Past Medical History PAST MEDICAL HISTORY: COPD Family History Family History: Reviewed,noncontributory to illness Social History Smoker: Cigarettes, Less Than 1 Pack/Day Alcohol: Denies ETOH Use Drugs: Denies Drug Use Lives In: Home Constitutional: denies: chills, diaphoresis, fatigue, fever, malaise, sweats, weakness, others EENTM: denies: blurred vision, double vision, ear bleeding, ear discharge, ear drainage, ear pain, ear ringing, eye pain, eye redness, hearing loss, mouth pain, mouth swelling, nasal discharge, nose bleeding, nose congestion, nose pain, photophobia, tearing, throat pain, throat swelling, voice changes, others Respiratory: denies: cough, hemoptysis, orthopnea, SOB at rest, shortness of breath, SOB with excertion, stridor, wheezing, others Cardiovascular: denies: chest pain, dizzy spells, diaphoresis, Dyspnea on e xertion, edema, irregular heart beat, left arm pain, lightheadedness, palpitations, PND, syncope, others Gastrointestinal: denies: abdomen distended, abdominal pain, blood streaked bowels, constipated, diarrhea, dysphagia, difficulty swallowing, hematemesis, melena, nausea, poor appetite, poor fluid intake, rectal bleeding, rectal pain, vomiting, others Genitourinary: denies: burning, dysuria, flank pain, frequency, hematuria, incontinence, penile discharge, penile sore, pain, testicle pain, testicle swelling, urgency, others Neurological: denies: dizziness, fainting, headache, left sided numbness, left sided weakness, numbness, paresthesia, pre-existing deficit, right sided numbness, right sided weakness, seizure, speech problems, tingling, tremors, weakness, others Musculoskeletal: reports: back pain, others (Bilateral hip pain); denies: gout, joint pain, joint swelling, muscle pain, muscle stiffness, neck pain Integumetry: reports: rash (Bilateral lower extremity), wounds (Bilateral lower extremity); denies: bruises, change in color, change in hair/nails, dryness, la ceration, lesions, lumps, others Allergic/Immunocompromised: denies: Difficulty Healing, Frequent Infections, Hives, Itching, others Hematologic/Lymphatic: denies: anemia, blood clots, easy bleeding, easy bruisin g, swollen glands, others Endocrine: denies: excessive hunger, excessive sweating, excessive thirst, excessive urination, flushing, intolerance to cold, intolerance to heat, unexplained weight gain, unexplained weight loss, others Psychiatric: denies: anxiety, bipolar disorder, depression, hopeless, panic disorder, schizophrenia, sleepless, suicidal, others Physical Exam General Appearance: No Apparent Distress, Normal HEENT: Pharynx Normal Neck: Full Range of Motion, Non-Tender Respiratory: Lungs Clear, No Respiratory Distress, Normal Breath Sounds Cardiovascular: No Edema, No JVD, No Murmur, No Gallop, Normal Peripheral Pulses, Regular Rate/Rhythm Breast Exam: Deferred Gastrointestinal: No Organomegaly, Non Tender, No Pulsatile Mass, Normal Bowel Sounds, Soft Genitalia: Deferred Pelvic: Deferred Rectal: Deferred Extremities: Normal capillary refill, Normal inspection, Normal range of motion, Non-tender, No pedal edema Musculoskeletal : Location: Bilateral Extremity Location: Back (Moderate tenderness over L1 through L5 without crepitus or step-offs. Strength sensory and motion intact.), Hip (Moderate Tenderness bilateral lateral hips. Moderate discomfort with range of motion. Positive pedal pulses. 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 Moderate erythema bilateral lower extremity, trace edema bilateral. Positive pedal pulses) Lymphatic: No Adenopathy Was a procedure done? Was a procedure done?: No Back Pain Differential Dx Differential Diagnosis: Fracture, Musculoskeletal Pain X-Ray, Labs, Meds, VS Vital Signs Date Time Temp Pulse Resp B/P (MAP) Pulse Ox O2 Delivery O2 Flow Rate FiO2 06/20/24 16:00 71 06/20/24 14:15 67 20 109/45 (66) 95 06/20/24 14:10 69 25 102/43 (62) 94 06/20/24 14:00 72 14 99/33 (55) 94 06/20/24 12:00 70 06/20/24 12:00 69 27 95/47 (63) 96 06/20/24 10:00 87 22 107/45 (65) 94 06/20/24 08:00 100 06/20/24 08:00 103 27 105/66 (79) 90 06/20/24 07:10 81 06/20/24 07:00 98.0 85 27 107/36 (59) 95 98.0 06/20/24 05:26 99 32 92 Room Air* 0 21 06/20/24 04:15 98.1 97 32 113/64 (80) 89 98.1 06/20/24 03:54 97.6 73 18 131/78 (95) 96 Lab Test 06/20/24 05:30 06/20/24 05:15 Range/Units Urine Color Light-yellow Yellow Urine Clarity Clear Clear Urine pH 5.5 5.0-9.0 Urine Specific [place] 1.006 1.001-1.035 Urine Protein Negative Negative Urine Ketones Negative Negative Urine Blood Negative Negative /uL Urine Nitrite Negative Negative Urine Bilirubin Negative Negative Urine Urobilinogen Normal Negative mg/dL Urine Leukocyte Esterase Negative Negative /uL Urine RBC <1 0 - 3 /hpf Urine Microscopic WBC < 1 0-3 /HPF Urine Squamous Epithelial Cells None seen <5 /hpf Urine Bacteria None seen None Seen /hpf Urine Glucose Normal Normal mg/dL White Blood Count 7.5 4.4-10.8 10^3/uL Red Blood Count 4.59 4.5-5.90 10^6/uL Hemoglobin 14.1 13.5-17.5 g/dL Hematocrit 42.6 41.0-53.0 % Mean Corpuscular Volume 92.8 80.0-100.0 fL Mean Corpuscular Hemoglobin 30.7 28.0-32.0 pg Mean Corpuscular Hemoglobin Concent 33.1 32.0-36.0 g/dL Red Cell Distribution Width 13.7 11.8-14.3 % Platelet Count 309 140-450 10^3/uL Mean Platelet Volume 7.4 6.9-10.8 fL Neutrophils (%) (Auto) 84.0 H 37.0-80.0 % Lymphocytes (%) (Auto) 6.6 L 10.0-50.0 % Monocytes (%) (Auto) 8.5 0.0-12.0 % Eosinophils (%) (Auto) 0.6 0.0-7.0 % Basophils (%) (Auto) 0.3 0.0-2.0 % Neutrophils # (Auto) 6.3 1.6-8.6 10 ^3/uL Lymphocytes # (Auto) 0.5 0.4-5.4 10 ^3/uL Monocytes # (Auto) 0.6 0-1.3 10 ^3/uL Eosinophils # (Auto) 0 0-0.8 10 ^3/uL Basophils # (Auto) 0 0-0.2 10 ^3/uL Nucleated Red Blood Cells 0.0 % Sodium Level 137 136-145 mmol/L Potassium Level 3.7 3.5-5.1 mmol/L Chloride Level 102 98-107 mmol/L Carbon Dioxide Level 26 20-31 mmol/L Anion Gap 9 5-15 Blood Urea Nitrogen 12 9-23 mg/dL Creatinine 0.88 0.700-1.30 mg/dL Glomerular Filtration Rate Calc 90 >90 mL/min BUN/Creatinine Ratio 13.6 10.0-20.0 Serum Glucose 123 H 74-106 mg/dL Lactic Acid Level 1.6 0.4-2.0 mmol/L Calcium Level 9.3 8.7-10.4 mg/dL Total Bilirubin 0.7 0.2-1.0 mg/dL Aspartate Amino Transferase (AST) 30 13-40 U/L Alanine Aminotransferase (ALT) 34 7-40 U/L Alkaline Phosphatase 129 H 46-116 U/L Total Protein 7.0 5.7-8.2 g/dL Albumin 4.0 3.2-4.8 g/dL Current Medications Medications (Trade) Dose Ordered Sig/Cami Route Start Time Stop Time Status Last Admin Vancomycin HCl 250 ml @ 250 mls/hr ONCE ONCE IV 06/20/24 04:30 06/20/24 05:29 DC 06/20/24 05:53 X-Ray, Labs, Meds, VS Comment Imaging: CT pelvis and lumbar spine ordered, pending results Labs: CBC, CMP, lactic acid, blood cultures, wound culture, UA MEDS: Start vancomycin 1 g IV after 1st set of blood culture Procedures: Wound Culture Diallo catheterization Wound care Plan: Patient placed for hospitalist for admission for bilateral lower extremity cellulitis and wound care I took over patient's care from [facility] at 6:00 a.m.. At this time patient was pending blood work and imaging studies. There was delay in obtaining CT scans of the lumbar spine and pelvis as patient was unable to lay flat. However few hours later I contacted Radiology in the attempted again and wire successful this time. At this time pelvis CT does not demonstrate acute fractures however lumbar spine multiple chronic abnormalities including acute to subacute fracture burst fracture of L1 with retropulsion of fragments. Also demonstrates multiple area of spinal stenosis. patient was personally evaluated by myself in the emergency department. [facility] [id number] [place] [id number] Ph: [phone] DIAGNOSTIC IMAGING Diagnostic Imaging Report : [id number] Signed PATIENT: CHANTELL GREEN ACCT: [id number] UNIT: [id number] : 1950 LOC: ER ROOM / BED: / AGE / SEX: 73 / M ADM STATUS: REG ER SERVICE 2 ORDERING PHYSICIAN: CHERYL PIERRE PROCEDURE(s): LS2CT - LS SPINE WO CONTRAST REASON: s/p fall pain ORDER NUMBER(s): [id number], ACCESSION NUMBER(s): [id number] EXAM: CT LS SPINE WO CONTRAST HISTORY: s/p fall pain COMPARISON: None TECHNIQUE: Noncontrast axial CT images of the lumbar spine were performed. Sagittal and coronal reformatted images were obtained. This CT exam was performed using one or more of the following dose reduction techniques: Automated exposure control, adjustment of the mA and/or kv according to patient size, or the use of iterative reconstruction techniques.Radiation Dose: CT Dose: CTDI volume is 35.38 mGy. Dose-length product is 1228.42 mGy*cm FINDINGS: See below IMPRESSION: 1. Acute to subacute appearing superior endplate burst fracture of L1, with minimal loss of vertebral body height and 4 mm retropulsion of fragments. 2. Chronic appearing superior endplate burst fracture of T12. 3. Postoperative changes of L2-L4 anterior plate and screw fusion and corpectomy device. 4. Mild spinal canal stenosis at L1-L2 and L3-L4. No high-grade spinal canal stenosis at any level in the lumbar spine. 5. Significant neural foraminal stenosis at L1-L2 on the left and L4-L5 on the right. These findings may correspond to lower extremity radicular symptoms in the left L1 and right L4 nerve root distributions. 6. 2 spinal cord stimulator leads are identified, ascending to the T9-T10 levels. 7. Fecal retention in the colon suggestive of constipation. 8. Postoperative changes of cholecystectomy. ATED BY: QUEENIE OSORIO MD DICTATED DATE/TIME: 06/20/24922 SIGNED BY: QUEENIE OSORIO MD SIGNED DATE/TIME: 06/20/24922 CC: Time of 1ST Reevaluation: 06:15 Reevaluation 1ST: Unchanged Patient Education/Counseling: Diagnosis, Treatment Family Education/Counseling: No Family Present Departure 1 Departure Time of Disposition: :26 Impression: Primary Impression: Cellulitis of both lower extremities Additional Impressions: Lower limb ulcer Qualified Codes: L97.912 - Non-pressure chronic ulcer of unspecified part of right lower leg with fat layer exposed Spinal stenosis Lumbar burst fracture Disposition: 09 ADMITTED INPATIENT Condition: Stable Discharged With: Self Critical Care Note Critical Care Time?: No Stability Stability form required: CHERYL Archer Jun 20, 2024 04:15 JEN MCKEON MD Jun 20, 2024 18:18
[2024-06-20 05:26] VITALS: PULSE 99; RESP 32; O2SAT 92
[2024-06-20] MEDS: VANCOMYCIN 1GM/250ML KIT 250 ML IV ONE (05:53)
[2024-06-20 05:54] LABS: Basophils # (auto) 0 10 ^3/uL (0-0.2); Basophils % (auto) 0.3 % (0.0-2.0); Eosinophils # (auto) 0 10 ^3/uL (0-0.8); Eosinophils % (auto) 0.6 % (0.0-7.0); Hematocrit 42.6 % (41.0-53.0); Hemoglobin 14.1 g/dL (13.5-17.5); Lymphocytes # (auto) 0.5 10 ^3/uL (0.4-5.4); Lymphocytes % (auto) 6.6 % (10.0-50.0); Mean Corpuscular Hemoglobin 30.7 pg (28.0-32.0); Mean Corpuscular Hgb Conc. 33.1 g/dL (32.0-36.0); Mean Corpuscular Volume 92.8 fL (80.0-100.0); Monocytes # (auto) 0.6 10 ^3/uL (0-1.3); Monocytes % (auto) 8.5 % (0.0-12.0); Neutrophils # (auto) 6.3 10 ^3/uL (1.6-8.6); Platelet Count (auto) 309 10^3/uL (140-450); Red Blood Cells 4.59 10^6/uL (4.5-5.90); Red Cell Distribution Width 13.7 % (11.8-14.3); White Blood Cell 7.5 10^3/uL (4.4-10.8)
[2024-06-20 06:11] LABS: Urine Bacteria None Seen /hpf (None Seen)
[2024-06-20 06:17] LABS: Alanine Aminotransferase 34 U/L (7-40); Anion Gap 9 (5-15); Aspartate Aminotransferase 30 U/L (13-40); BUN/Creatinine Ratio 13.6 (10.0-20.0); Blood Urea Nitrogen 12 mg/dL (9-23); Calcium 9.3 mg/dL (8.7-10.4); Carbon Dioxide 26 mmol/L (20-31); Chloride 102 mmol/L (98-107); Potassium 3.7 mmol/L (3.5-5.1); Sodium 137 mmol/L (136-145)
[2024-06-20 06:18] LABS: Bilirubin, Total 0.7 mg/dL (0.2-1.0)
[2024-06-20 06:19] LABS: Alkaline Phosphatase 129 U/L (46-116); Glucose 123 mg/dL (74-106)
[2024-06-20 06:26] LABS: Urine Blood Negative /uL (Negative); Urine Clarity Clear (Clear); Urine Color Light-Yellow (Yellow); Urine Protein, UAD Negative (Negative); Urine Specific Gravity 1.006 (1.001-1.035); Urine Squamous Epithelial Cell None Seen /hpf (<5); Urine Urobilinogen Normal (Negative); Urine WBC < 1 /HPF (0-3); Urine pH 5.5 (5.0-9.0)
[2024-06-20 08:45] VITALS: PULSE 63; RESP 18; O2SAT 93
--- NOTE | 2024-06-20 09:26 | DVH ---
EXAM: CT LS SPINE WO CONTRAST HISTORY: s/p fall pain COMPARISON: None TECHNIQUE: Noncontrast axial CT images of the lumbar spine were performed. Sagittal and coronal refor matted images were obtained. This CT exam was performed using one or more of the following dose reduc tion techniques: Automated exposure control, adjustment of the mA and/or kv according to patient size , or the use of iterative reconstruction techniques.Radiation Dose: CT Dose: CTDI volume is 35.38 mGy . Dose-length product is 1228.42 mGy*cm FINDINGS: See below IMPRESSION: 1. Acute to subacute appearing superior endplate burst fracture of L1, with minimal loss of vertebral body height and 4 mm retropulsion of fragments. 2. Chronic appearing superior endplate burst fracture of T12. 3. Postoperative changes of L2-L4 anterior plate and screw fusion and corpectomy device. 4. Mild spinal canal stenosis at L1-L2 and L3-L4. No high-grade spinal canal stenosis at any level in the lumbar spine. 5. Significant neural foraminal stenosis at L1-L2 on the left and L4-L5 on the right. These findings may correspond to lower extremity radicular symptoms in the left L1 and right L4 nerve root distribu tions. 6. 2 spinal cord stimulator leads are identified, ascending to the T9-T10 levels. 7. Fecal retention in the colon suggestive of constipation. 8. Postoperative changes of cholecystectomy.
--- NOTE | 2024-06-20 10:10 | DVH ---
CLINICAL INFORMATION: Pain status post fall injury. TECHNIQUE: Axial CT images of the pelvis were obtained without IV contrast. Coronal and sagittal refo rmatted images were obtained, reviewed, and stored. 3D reconstructed images were created at an [employer] workstation with concurrent physician supervision. All CT scans at this medical facility are pe rformed using dose modulation techniques as appropriate to a performed exam including the following: Automated exposure control was utilized; adjustment of the MA and/or KV according to patient size; an d use of iterative reconstruction technique. CTDIvol = 33.01 mGy DLP = 1180.25 mGy-cm COMPARISON: No prior imaging of the pelvis was available for comparison at the time of dictation. FINDINGS: For details regarding the lumbar spine, which is partially visualized on this exam, to the separately dictated, same-day CT lumbar spine report. No evidence of acute fracture in the pelvis. Mo derate joint space narrowing in both hips with mild sclerosis [id number] sclerosis adjacent to the sacroiliac joints. There is a Diallo catheter extending into the bladder. Partially visualized spi nal stimulator device associated leads. IMPRESSION: 1. No evidence of acute fracture. 2. Refer to the separately dictated CT lumbar spine report for details concerning the lumbar spine. 3. Additional findings as detailed above.
[2024-06-20] MEDS ORDERED: MORPHINE SULFATE INJ 2 MG/ml SYRG IV PRN (18:00)
[2024-06-20] MEDS ORDERED: NITROGLYCERIN 0.4 MG SL TAB SL PRN (18:00)
[2024-06-20] MEDS ORDERED: ONDANSETRON HCL 4 MG/2 ML VIAL IV PRN (18:00)
[2024-06-20] MEDS ORDERED: VANCOMYCIN PER PHARMACY 0 MG IV SCH (18:00)
[2024-06-20] MEDS: SODIUM CHLORIDE 0.9% 1,000 ML IV SCH (18:20)
[2024-06-20 19:22] VITALS: PULSE 74; RESP 20; O2SAT 96
[2024-06-20] MEDS: VANCOMYCIN 750MG KIT 100 ML IV SCH (21:40)
[2024-06-20] MEDS: CEFEPIME 1GM/ 50ML 50 ML IV SCH (21:41)
[2024-06-20] MEDS: ACETAMINOPHEN 325 MG TAB PO PRN (21:41)
[2024-06-20] MEDS: ASCORBIC ACID 500 MG TAB PO SCH (21:41)
[2024-06-21] MEDS: HYDROcodone-ACET 5/325MG TAB PO PRN (01:18)
--- NOTE | 2024-06-21 01:30 | DVHHP2 ---
Admitting Diagnosis: Bilateral lower extremity cellulitis with open wounds, Acute L1 fracture status post mechanical , pelvic pain History of Present Illness History Source: Patient Exam Limitations: No limitations HPI Mr. Christiano Saab is a 73-year-old male with a history of COPD presents with a chief complaint status post fall x2 today. Patient states slip and fall today while using his walker first-time falling on his left side, left hip then right side right hip. Cleaning of bilateral hip pain and lower back pain 8/10 on pain scale sharp shooting pain across his lower back, left lateral and right lateral hip pain shooting into his bilateral groin. Patient denies urinary incontinence, bowel incontinence, nausea, vomiting, fevers, dizziness, syncope. Patient admitted for further evaluation. Home Meds Reported Medications Albuterol Sulfate (Albuterol Sulfate) 0.083 % Neb, NEB 09/15/23 Ipratropium [place] (Ipratropium [place]) 0.02 % [place], INH 09/15/23 Potassium Chloride (POTASSIUM CHLORIDE CR) 10 Meq Tb, 1 TAB PO BID 09/15/23 Bumetanide (Bumetanide) 2 Mg Tab, 1 MG PO BID 09/15/23 Past Medical History Cardiac: No pertinent Hx Pulmonary: COPD Central Nervous System: No pertinent Hx GI: No pertinent Hx Hemotology/Oncology: No pertinent Hx Hepatobiliary: No pertinent Hx Psychiatric: No pertinent Hx Musculoskeletal: No pertinent Hx Rheumotologic: No pertinent Hx Infectious Disease: No peritnent Hx ENT: No pertinent Hx Renal/: No pertinent Hx Endocrine: No pertinent Hx Dermatology: No pertinent Hx Patient Family History: Malignant neoplasm of ovary G8 MOTHER, Seizure disorder G8 FATHER, Smoker: No Hx (Negative) Alocohol: None Drugs: None Lives with: With family Domestic Violence: Neg Review of Systems Constitutional: No symptom reported Ears, Nose, & Throat: No symptom reported Eyes: No symptom reported Pulmonary/Respiratory: No symptom reported Cardiovascular: No symptom reported Gastrointestinal: No symptom reported Genitourinary: No symptom reported Musculoskeletal: Other (pelvic pain) Skin: Other (bilateral lower extremity wounds) Psychiatric: No symptom reported Endocrine: No symptom reported Hemotologic/Lymphatic: No symptom reported H&P Exam Vital Signs Vital Signs Date Time Temp Pulse Resp B/P (MAP) Pulse Ox O2 Delivery O2 Flow Rate FiO2 06/21/24 00:00 62 21 113/56 (75) 95 06/20/24 22:41 98.7 06/20/24 19:22 Nasal Cannula* 2 28 General Appeara: Well developed, Well nourished, Normal Appearance Head Exam: Normal inspection Neck Exam: Normal inspection, Non-tender, Normal alignment Eye Exam: right eye Normal inspection, right eye PERRL, right eye EOMI; left eye Other (blind) Ear Exam: bilateral ear Auricle normal Nasal Exam: Normal inspection Mouth: Normal Inspection Pulmonary/Respiratory: Normal inspection, Normal breath sounds, Chest non- tender Cardiovascular/Chest: Normal inspection, Bradycardia, Other (bigeminy pvc's) Peripheral Pulses: 2+ dorsalis pedis (R), 2+ dorsalis pedis (L), 2+ Radial (R), 2+ Radial (L) Abdominal Exam: Normal bowel sounds, Soft, No tenderness Rectal Exam: Deferred Back Exam: Other (lower back pain) Foot: bilateral foot soft tissue tenderness, bilateral foot swelling, bilateral foot other (bilateral lower extremity wounds) [employer] Exam: Normal hearing, 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, PERRL (right eye) Neuro/Mental St: Alert, Oriented Appearance: Appropriate insight, Disheveled Eye contact/ Speech: Cooperative, Good eye contact, 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 Thoughts/Psych: Normal thought pattern Skin Exam: Normal color, Warm/dry, Other (bilateral loer extremity wounds) Wounds bilateral lower extremity wounds Labs/Xrays Labs Test 06/20/24 05:30 06/20/24 05:15 Range/Units Urine Color Light-yellow Yellow Urine Clarity Clear Clear Urine pH 5.5 5.0-9.0 Urine Specific [place] 1.006 1.001-1.035 Urine Protein Negative Negative Urine Ketones Negative Negative Urine Blood Negative Negative /uL Urine Nitrite Negative Negative Urine Bilirubin Negative Negative Urine Urobilinogen Normal Negative mg/dL Urine Leukocyte Esterase Negative Negative /uL Urine RBC <1 0 - 3 /hpf Urine Microscopic WBC < 1 0-3 /HPF Urine Squamous Epithelial Cells None seen <5 /hpf Urine Bacteria None seen None Seen /hpf Urine Glucose Normal Normal mg/dL White Blood Count 7.5 4.4-10.8 10^3/uL Red Blood Count 4.59 4.5-5.90 10^6/uL Hemoglobin 14.1 13.5-17.5 g/dL Hematocrit 42.6 41.0-53.0 % Mean Corpuscular Volume 92.8 80.0-100.0 fL Mean Corpuscular Hemoglobin 30.7 28.0-32.0 pg Mean Corpuscular Hemoglobin Concent 33.1 32.0-36.0 g/dL Red Cell Distribution Width 13.7 11.8-14.3 % Platelet Count 309 140-450 10^3/uL Mean Platelet Volume 7.4 6.9-10.8 fL Neutrophils (%) (Auto) 84.0 H 37.0-80.0 % Lymphocytes (%) (Auto) 6.6 L 10.0-50.0 % Monocytes (%) (Auto) 8.5 0.0-12.0 % Eosinophils (%) (Auto) 0.6 0.0-7.0 % Basophils (%) (Auto) 0.3 0.0-2.0 % Neutrophils # (Auto) 6.3 1.6-8.6 10 ^3/uL Lymphocytes # (Auto) 0.5 0.4-5.4 10 ^3/uL Monocytes # (Auto) 0.6 0-1.3 10 ^3/uL Eosinophils # (Auto) 0 0-0.8 10 ^3/uL Basophils # (Auto) 0 0-0.2 10 ^3/uL Nucleated Red Blood Cells 0.0 % Sodium Level 137 136-145 mmol/L Potassium Level 3.7 3.5-5.1 mmol/L Chloride Level 102 98-107 mmol/L Carbon Dioxide Level 26 20-31 mmol/L Anion Gap 9 5-15 Blood Urea Nitrogen 12 9-23 mg/dL Creatinine 0.88 0.700-1.30 mg/dL Glomerular Filtration Rate Calc 90 >90 mL/min BUN/Creatinine Ratio 13.6 10.0-20.0 Serum Glucose 123 H 74-106 mg/dL Lactic Acid Level 1.6 0.4-2.0 mmol/L Calcium Level 9.3 8.7-10.4 mg/dL Total Bilirubin 0.7 0.2-1.0 mg/dL Aspartate Amino Transferase (AST) 30 13-40 U/L Alanine Aminotransferase (ALT) 34 7-40 U/L Alkaline Phosphatase 129 H 46-116 U/L Total Protein 7.0 5.7-8.2 g/dL Albumin 4.0 3.2-4.8 g/dL Assessment/Plan Problem List: (1) Lumbar burst fracture (2) Bilateral lower leg cellulitis Plan This is a 73 yo male with known history of COPD presents to the hospital with pelvic pain status post mechanical fall, bilateral lower extremity wounds. Patient with bigeminy PVC's. Patient found to have 1. Acute L1 fracture 2. Pelvic Pain 3. Bilateral lower extremity cellulitis with open wounds Plan: Admit Telemetry Spinal Orthopedic surgeon consultation Infectious Disease consultation Cardiology consultation, 2D echo IV antibiotic Vancomycin, Cefepime Wound cultures, BC x2 DVT ppx Lovenox SC Discussed all above with patient who verbalizes agreement and understanding of care plan. All questions were answered. Discussed assessment and care plan with supervising MD. Plan discussed with: Patient Code Visit Code Visit Total Time (mins): 45 Additional Comments Additional Comments Additional Comments Patient was seen and evaluated by me. I agree with the assessment and plan as outlined by my nurse practitioner. MORENO JASMINE Jun 21, 2024 01:30 JOVITA PETERS MD Jun 21, 2024 17:01
[2024-06-21 04:05] LABS: Basophils # (auto) 0 10 ^3/uL (0-0.2); Basophils % (auto) 0.5 % (0.0-2.0); Eosinophils # (auto) 0.2 10 ^3/uL (0-0.8); Eosinophils % (auto) 3.1 % (0.0-7.0); Hematocrit 35.7 % (41.0-53.0); Hemoglobin 12.1 g/dL (13.5-17.5); Mean Corpuscular Hemoglobin 31.3 pg (28.0-32.0); Mean Corpuscular Hgb Conc. 33.8 g/dL (32.0-36.0); Mean Corpuscular Volume 92.4 fL (80.0-100.0); Monocytes # (auto) 0.6 10 ^3/uL (0-1.3); Monocytes % (auto) 9.7 % (0.0-12.0); Neutrophils # (auto) 4.3 10 ^3/uL (1.6-8.6); Neutrophils % (auto) 69.7 % (37.0-80.0); Nucleated Red Blood Cells % 0.1 %; Platelet Count (auto) 266 10^3/uL (140-450); Red Blood Cells 3.86 10^6/uL (4.5-5.90); White Blood Cell 6.1 10^3/uL (4.4-10.8)
[2024-06-21 04:23] LABS: Potassium 3.4 mmol/L (3.5-5.1)
[2024-06-21 04:29] LABS: Magnesium 1.9 mg/dL (1.6-2.6)
[2024-06-21] MEDS: POTASSIUM CHL 20 Meq TABLET PO ONE (05:28)
[2024-06-21 07:25] VITALS: PULSE 70; RESP 20; O2SAT 99
--- NOTE | 2024-06-21 10:27 | DVHINCON2 ---
Date of service: Jun 21, 2024 Reason for Consultation Bilateral lower extremity cellulitis with open wounds History of Present Illness Patient is a 73-year-old male with a history of COPD presents with a chief complaint status post fall x2 today. Patient reports that he slip and fall while using his walker first-time falling on his left side, left hip then right side right hip. Cleaning of bilateral hip pain and lower back pain 8/10 on pain scale sharp shooting pain across his lower back, left lateral and right lateral hip pain shooting into his bilateral groin. Patient denies urinary incontinence, bowel incontinence, nausea, vomiting, fevers, dizziness, syncope. Patient admitted for further evaluation. Past Medical History Patient's past medical history is significant for COPD. Family History: Malignant neoplasm of ovary G8 MOTHER, Seizure disorder G8 FATHER, Allergies: Coded Allergies: NO KNOWN ALLERGIES (Unverified , 01/11/19) Home Meds Reported Medications Albuterol Sulfate (Albuterol Sulfate) 0.083 % [place], NEB 09/15/23 Ipratropium [place]e (Ipratropium [place]) 0.02 % [place], INH 09/15/23 Potassium Chloride (POTASSIUM CHLORIDE CR) 10 Meq Tb, 1 TAB PO BID 09/15/23 Bumetanide (Bumetanide) 2 Mg Tab, 1 MG PO BID 09/15/23 Current Medications Current Medications Medications (Trade) Dose Ordered Sig/Cami Route PRN Reason Start Time Stop Time Status Last Admin Sodium Chloride 1,000 ml @ 60 mls/hr [id number] IV 06/20/24 18:00 06/20/24 18:20 Acetaminophen/ Hydrocodone Bitart ([place] 5/325MG Tab) 1 tab Q4HP PRN PO MODERATE PAIN (4-6 PAIN SCALE) 06/20/24 18:00 06/21/24 06:09 Ondansetron HCl (Zofran) 4 mg Q4HP PRN IV NAUSEA / VOMITING 06/20/24 18:00 Enoxaparin Sodium (Lovenox) 40 mg DAILY SC 06/21/24 10:00 Zinc Sulfate 220 mg DAILY PO 06/21/24 10:00 Ascorbic Acid (Vitamin C Tablet) 500 mg BID PO 06/20/24 22:00 06/20/24 21:41 Multivitamins (Mvi Tab) 1 tab DAILY PO 06/21/24 10:00 Acetaminophen (Tylenol Tablet) 650 mg Q6HP PRN PO PAIN SCALE 1-3 OR TEMP>100.4 06/20/24 18:00 06/20/24 21:41 Nitroglycerin (Ntrostat Sublingual) 0.4 mg Q5MINP PRN SL FOR CHEST PAIN 06/20/24 18:00 Morphine Sulfate 2 mg Q30M PRN IV FOR CHEST PAIN 06/20/24 18:00 Vancomycin HCl 0 ml @ 0 mls/hr UD IV 06/20/24 18:00 Cefepime HCl 50 ml @ 12.5 mls/hr Q8HR IV 06/20/24 22:00 06/21/24 05:28 Vancomycin HCl 100 ml @ 100 mls/hr Q12H IV 06/20/24 20:00 06/21/24 10:10 Review of Systems General: No Fever, chills, night sweats or weight loss HEENT: No Sinus pain, headache, vision changes or sore throat Respiratory: No Cough, dyspnea, sputum production Cardiovascular: No Chest pain, palpitations or leg edema Gastrointestinal: No Nausea, vomiting, diarrhea, abdominal pain Genitourinary: No Dysuria, urinary frequency, hematuria, pelvic pain Skin: Positive for bilateral lower extremity wounds. No Rashes, ulcers, abscesses, redness or swelling Musculoskeletal: Positive for pelvic pain. No Joint pain, muscle pain or swelling Neurologic: No Altered mental status, headaches or focal neurological deficits Psychiatric: No Anxiety, depression or confusion Vital Signs Vital Signs Date Time Temp Pulse Resp B/P (MAP) Pulse Ox O2 Delivery O2 Flow Rate FiO2 06/21/24 09:25 65 18 112/48 (69) 95 06/21/24 07:25 Nasal Cannula* 2 28 06/21/24 07:25 98.3 98.3 Physical Exam General Appearance: Well developed, Well nourished, Normal Appearance Head Exam: Normal inspection Neck Exam: Normal inspection, Non-tender, Normal alignment Eye Exam: right eye Normal inspection, right eye PERRL, right eye EOMI; left eye Other (blind) Ear Exam: bilateral ear Auricle normal Nasal Exam: Normal inspection Mouth: Normal Inspection Pulmonary/Respiratory: Normal inspection, Normal breath sounds, Chest non- tender Cardiovascular/Chest: Normal inspection, Bradycardia, Other (bigeminy pvc's) Abdominal Exam: Normal bowel sounds, Soft, No tenderness Back Exam: Other (lower back pain) Foot: bilateral foot soft tissue tenderness, bilateral foot swelling, bilateral foot other (bilateral lower extremity wounds) [facility] [employer] WOMEN Exam: Normal hearing, 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, PERRL (right eye) Neuro/Mental St: Alert, Oriented Appearance: Appropriate insight, Disheveled Eye contact/ Speech: Cooperative, Good eye contact, 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 Thoughts/Psych: Normal thought pattern Skin Exam: Normal color, Warm/dry, Other (bilateral lower extremity wounds) Labs/Diagnostic Data Labs Test 06/21/24 03:31 06/20/24 05:30 06/20/24 05:15 Range/Units White Blood Count 6.1 4.4-10.8 10^3/uL Red Blood Count 3.86 L 4.5-5.90 10^6/uL Hemoglobin 12.1 L 13.5-17.5 g/dL Hematocrit 35.7 #L 41.0-53.0 % Mean Corpuscular Volume 92.4 80.0-100.0 fL Mean Corpuscular Hemoglobin 31.3 28.0-32.0 pg Mean Corpuscular Hemoglobin Concent 33.8 32.0-36.0 g/dL Red Cell Distribution Width 14.0 11.8-14.3 % Platelet Count 266 140-450 10^3/uL Mean Platelet Volume 7.4 6.9-10.8 fL Neutrophils (%) (Auto) 69.7 37.0-80.0 % Lymphocytes (%) (Auto) 17.0 10.0-50.0 % Monocytes (%) (Auto) 9.7 0.0-12.0 % Eosinophils (%) (Auto) 3.1 0.0-7.0 % Basophils (%) (Auto) 0.5 0.0-2.0 % Neutrophils # (Auto) 4.3 1.6-8.6 10 ^3/uL Lymphocytes # (Auto) 1.0 0.4-5.4 10 ^3/uL Monocytes # (Auto) 0.6 0-1.3 10 ^3/uL Eosinophils # (Auto) 0.2 0-0.8 10 ^3/uL Basophils # (Auto) 0 0-0.2 10 ^3/uL Nucleated Red Blood Cells 0.1 % Potassium Level 3.4 L 3.5-5.1 mmol/L Creatinine 0.60 L 0.700-1.30 mg/dL Glomerular Filtration Rate Calc 101 >90 mL/min Magnesium Level 1.9 1.6-2.6 mg/dL B-Type Natriuretic Peptide 265.90 0-100 pg/mL Urine Color Light-yellow Yellow Urine Clarity Clear Clear Urine pH 5.5 5.0-9.0 Urine Specific [place] 1.006 1.001-1.035 Urine Protein Negative Negative Urine Ketones Negative Negative Urine Blood Negative Negative /uL Urine Nitrite Negative Negative Urine Bilirubin Negative Negative Urine Urobilinogen Normal Negative mg/dL Urine Leukocyte Esterase Negative Negative /uL Urine RBC <1 0 - 3 /hpf Urine Microscopic WBC < 1 0-3 /HPF Urine Squamous Epithelial Cells None seen <5 /hpf Urine Bacteria None seen None Seen /hpf Urine Glucose Normal Normal mg/dL Sodium Level 137 136-145 mmol/L Chloride Level 102 98-107 mmol/L Carbon Dioxide Level 26 20-31 mmol/L Anion Gap 9 5-15 Blood Urea Nitrogen 12 9-23 mg/dL BUN/Creatinine Ratio 13.6 10.0-20.0 Serum Glucose 123 H 74-106 mg/dL Lactic Acid Level 1.6 0.4-2.0 mmol/L Calcium Level 9.3 8.7-10.4 mg/dL Total Bilirubin 0.7 0.2-1.0 mg/dL Aspartate Amino Transferase (AST) 30 13-40 U/L Alanine Aminotransferase (ALT) 34 7-40 U/L Alkaline Phosphatase 129 H 46-116 U/L Total Protein 7.0 5.7-8.2 g/dL Albumin 4.0 3.2-4.8 g/dL Microbiology Date/Time Source Procedure Growth Status 06/20/24 05:30 Blood Blood Culture - Preliminary NO GROWTH AFTER 24 HOURS OF INCUBATION. Resulted Assessment Patient is a 73-year-old male presents to the hospital with: Bilateral lower leg cellulitis with open wounds Lumbar burst fracture Acute L1 fracture Pelvic pain Recommendations: Antibiotic status: Vancomycin IV [Started on 06/20 - Ongoing] Cefepime IV [ Started on 06/20 - Ongoing] 06/20, Wound culture preliminary showed: Beta-Hemolytic Group F Streptococcus and Staphylococcus aureus 06/20, Blood culture preliminary showed no growth 06/20, Pelvis CT showed No evidence of acute fracture. Potassium is low Thank you for consult. RADHA KAT MD Jun 21, 2024 10:27
[2024-06-21] MEDS: ZINC SULFATE 220mg CAP or TAB PO SCH (10:31)
[2024-06-21] MEDS: ENOXAPARIN SOD 40 MG/0.4 ML SYRINGE SC SCH (10:32)
[2024-06-21] MEDS: MULTIPLE VITAMIN TAB PO SCH (10:32)
--- NOTE | 2024-06-21 11:29 | DVHSR ---
APPROVED REPORT EXAM: Two-dimensional and M-mode echocardiogram with Doppler and color Doppler. Blood Pressure: 113/59 mmHg INDICATION Arrhythmia RISK FACTORS Height: 5'8", Weight: 160 DIMENSIONS LVDd4.4 (3.8-5.7cm)LA (2D)3.4 (1.9-4.0cm)Aortic Root (2.0-3.7cm) LVDs2.9 (2.5-4.0cm)LA (MM) (1.9-4.0cm)Aortic Cusp Exc (1.5-2.0cm) EF (%) 65.0 (55-70%)Rt. Atrium (1.9-4.0cm)Asc. Aorta cm IVSd0.8 (0.7-1.1cm)RV (D) (1.8-2.4cm) Mitral Valve MitralMitral Stenosis E wave0.71m/sMV Mean GR.mmHg A wave0.97m/sMV Peak GR.mmHg E/A ratio0.72D MVAcm2 DECEL [id number] 1/2 Timems Aortic Valve Aortic ValveAortic Stenosis V11.12m/Tra Mean GR.5mmHg V21.63m/Tra Peak GR.11mmHg LVOT Diameter2.0 (1.8-2.4cm)Doppler AVA2.16cm2 Tricuspid Valve TR Velocity2.52m/s [id number] Other Information Quality : Technically LimitedRhythm : Technically limited study due to body habitus and patient position. Conclusion lvef 70% by visual estimate mild to moderateLVH normal rv function normal atria no severe valve abnormalities noted
[2024-06-21 19:49] VITALS: PULSE 69; RESP 22; O2SAT 96
[2024-06-21 20:58] LABS: Urine Bacteria FEW /hpf (None Seen); Urine Blood 1+ /uL (Negative); Urine Clarity Clear (Clear); Urine Color Yellow (Yellow); Urine Mucus FEW (None Seen); Urine Protein, UAD 1+ (Negative); Urine Specific Gravity 1.025 (1.001-1.035); Urine Squamous Epithelial Cell None Seen /hpf (<5); Urine Urobilinogen Normal (Negative); Urine WBC 3 /HPF (0-3); Urine pH 5.5 (5.0-9.0)
[2024-06-21 21:43] VITALS: PULSE 104; RESP 19; O2SAT 97
[2024-06-21] MEDS ORDERED: FURO40TA4 PO (22:15)
[2024-06-21] MEDS ORDERED: QUET50TA PO (22:15)
--- NOTE | 2024-06-21 22:37 | DVHINCON2 ---
DATE OF CONSULTATION: 06/21/2024 REFERRING PHYSICIAN: Dr. Giron. CONSULTING PHYSICIAN: Dr. Oakley. INDICATION: Arrhythmia. HISTORY OF PRESENT ILLNESS: The patient is a 73-year-old male with a history of COPD, who presented to the hospital status post fall. The patient apparently was complaining of low back and hip pain. While in telemetry, the patient was noted to have frequent PVCs. The patient denies any prior history of heart disease known to him. Denies any chest pain. Denies any palpitations. PAST MEDICAL HISTORY: * COPD. * Hypertension. * ____ MEDICATIONS: Per med rec. ALLERGIES: No known drug allergies. PHYSICAL EXAMINATION: GENERAL: Alert and awake, in no form of cardiopulmonary distress. VITAL SIGNS: Blood pressure 108/37, pulse 66 per minute, saturation 97%. HEENT: No carotid bruits. No jugular venous distention. CHEST: Bilateral air entry. CARDIOVASCULAR: Precordial and carotid pulses palpable. Normal S1, S2. EXTREMITIES: No peripheral edema. DIAGNOSTIC DATA: White count 6, hemoglobin 12, platelet is 266. Sodium 137, potassium 3.7, creatinine 0.8. BNP is 265. ASSESSMENT: * Status post fall. * Lumbar spine fracture. * Lower extremity cellulitis. * Premature ventricular contractions of unclear significance at this point. * History of chronic obstructive pulmonary disease. * Hypokalemia. RECOMMENDATIONS: * Supplement potassium. * Keep potassium above 4 and magnesium above 2. * Continue IV antibiotics. * Obtain echo to exclude underlying structural heart disease. * If the patient has frequent PVCs and blood pressure is stable, we will start low dose beta lori. * Continue telemetry monitoring. Thank you for allowing me to partake in the care of this patient. MD NAHEED Gonzalez/URSZULA/ROD TID: [id number] RECEIPT: [id number]
[2024-06-21 22:43] VITALS: BP 119/47; PULSE 104; RESP 19; TEMP 97.6; O2SAT 97
[2024-06-22] VITALS (8 sets, daily range): BP systolic 104–137; BP diastolic 56–80; PULSE 56–98; RESP 16–19; TEMP 97.6–98.4; O2SAT 94–100
[2024-06-22 07:12] LABS: Potassium 3.7 mmol/L (3.5-5.1); Sodium 140 mmol/L (136-145)
[2024-06-22 07:13] LABS: Anion Gap 7 (5-15); Carbon Dioxide 25 mmol/L (20-31)
[2024-06-22 07:18] LABS: BUN/Creatinine Ratio 13.2 (10.0-20.0); Glucose 95 mg/dL (74-106)
[2024-06-22 07:31] LABS: Blood Urea Nitrogen 9 mg/dL (9-23); Chloride 108 mmol/L (98-107)
[2024-06-22 07:32] LABS: Calcium 8.5 mg/dL (8.7-10.4)
--- NOTE | 2024-06-22 12:30 | DVHPN2 ---
Progress Note - Dictate Date Seen: Jun 22, 2024 Subjective Patient's family is at bedside. Requesting to send to SNF upon discharge. vital signs Vital Sign Date Time Temp Pulse Resp B/P (MAP) Pulse Ox O2 Delivery O2 Flow Rate FiO2 06/22/24 08:44 98.1 64 17 109/56 (73) 94 98.1 06/21/24 21:43 Nasal Cannula* 2 28 Total Intake and Output 06/21/24 06/21/24 06/22/24 15:00 23:00 07:00 Intake Total 630.0 ml 510 ml 300 ml Output Total 700 ml Balance 630.0 ml 510 ml -400 ml medications Current Medications Medications Dose Ordered Sig/Cami Route Start Time Stop Time Status Last Admin Dose Admin Sodium Chloride 1,000 ml @ 60 mls/hr [id number] IV 06/20/24 18:00 06/21/24 10:33 60 MLS/HR Acetaminophen/ Hydrocodone Bitart 1 tab Q4HP PRN PO 06/20/24 18:00 06/22/24 09:43 1 TAB Ondansetron HCl 4 mg Q4HP PRN IV 06/20/24 18:00 Enoxaparin Sodium 40 mg DAILY SC 06/21/24 10:00 06/22/24 09:02 40 MG Zinc Sulfate 220 mg DAILY PO 06/21/24 10:00 06/22/24 09:01 220 MG Ascorbic Acid 500 mg BID PO 06/20/24 22:00 06/22/24 09:01 500 MG Multivitamins 1 tab DAILY PO 06/21/24 10:00 06/22/24 09:01 1 TAB Acetaminophen 650 mg Q6HP PRN PO 06/20/24 18:00 06/20/24 21:41 650 MG Nitroglycerin 0.4 mg Q5MINP PRN SL 06/20/24 18:00 Morphine Sulfate 2 mg Q30M PRN IV 06/20/24 18:00 Vancomycin HCl 0 ml @ 0 mls/hr UD IV 06/20/24 18:00 Cefepime HCl 50 ml @ 12.5 mls/hr Q8HR IV 06/20/24 22:00 06/22/24 05:33 12.5 MLS/HR Vancomycin HCl 250 ml @ 250 mls/hr Q12H IV 06/22/24 20:00 objective General Appearance: Well developed, Well nourished, Normal Appearance Head Exam: Normal inspection Neck Exam: Normal inspection, Non-tender, Normal alignment Eye Exam: right eye Normal inspection, right eye PERRL, right eye EOMI; left eye Other (blind) Ear Exam: bilateral ear Auricle normal Nasal Exam: Normal inspection Mouth: Normal Inspection Pulmonary/Respiratory: Normal inspection, Normal breath sounds, Chest non- tender Cardiovascular/Chest: Normal inspection, Bradycardia, Other (bigeminy pvc's) Abdominal Exam: Normal bowel sounds, Soft, No tenderness Back Exam: Other (lower back pain) Foot: bilateral foot soft tissue tenderness, bilateral foot swelling, bilateral foot other (bilateral lower extremity wounds) 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, 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, PERRL (right eye) Neuro/Mental St: Alert, Oriented Appearance: Appropriate insight, Disheveled Eye contact/ Speech: Cooperative, Good eye contact, 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 Thoughts/Psych: Normal thought pattern Skin Exam: Normal color, Warm/dry, Other (bilateral lower extremity wounds) laboratory and microbiology Laboratory Tests 06/22/24 06:53 06/21/24 03:31 Test 06/22/24 06:53 Range/Units Serum Glucose 95 74-106 mg/dL Assessment/Plan Patient is a 73-year-old male presents to the hospital with: Bilateral lower leg cellulitis with open wounds Lumbar burst fracture Acute L1 fracture Pelvic pain Recommendations: Antibiotic status: Vancomycin IV [Started on 06/20 - Ongoing] Cefepime IV [ Started on 06/20 - Ongoing] 06/22, Vancomycin Trough is 6.4. 06/20, Wound culture preliminary showed: Beta-Hemolytic Group F Streptococcus and Staphylococcus aureus 06/20, Blood culture preliminary showed no growth 06/20, Pelvis CT showed No evidence of acute fracture. Potassium is normal Thank you for consult. Dietary Evaluation Review Comments: 1.Check A1C, consider CCHO-60 if glucose is not under contol, 2.To prmote wound healing: Lino BID, and encourage increase protein PO intake. Expected Outcomes/Goals: healed wound, consider RADHA KAT MD Jun 22, 2024 12:30
--- NOTE | 2024-06-22 14:27 | ECG ---
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
--- NOTE | 2024-06-22 17:48 | DVHPN2 ---
Subjective Overnight events noted. Patient family at bedside, [facility] 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 Extremity bilateral lower extremity wounds status post antiseptic dressing Medications Current Medications Medications Dose Ordered Sig/Cami Route Start Time Stop Time Status Last Admin Dose Admin Sodium Chloride 1,000 ml @ 60 mls/hr [id number] IV 06/20/24 18:00 06/21/24 10:33 60 MLS/HR Acetaminophen/ Hydrocodone Bitart 1 tab Q4HP PRN PO 06/20/24 18:00 06/22/24 16:27 1 TAB Ondansetron HCl 4 mg Q4HP PRN IV 06/20/24 18:00 Enoxaparin Sodium 40 mg DAILY SC 06/21/24 10:00 06/22/24 09:02 40 MG Zinc Sulfate 220 mg DAILY PO 06/21/24 10:00 06/22/24 09:01 220 MG Ascorbic Acid 500 mg BID PO 06/20/24 22:00 06/22/24 09:01 500 MG Multivitamins 1 tab DAILY PO 06/21/24 10:00 06/22/24 09:01 1 TAB Acetaminophen 650 mg Q6HP PRN PO 06/20/24 18:00 06/20/24 21:41 650 MG Nitroglycerin 0.4 mg Q5MINP PRN SL 06/20/24 18:00 Morphine Sulfate 2 mg Q30M PRN IV 06/20/24 18:00 Vancomycin HCl 0 ml @ 0 mls/hr UD IV 06/20/24 18:00 Cefepime HCl 50 ml @ 12.5 mls/hr Q8HR IV 06/20/24 22:00 3/4/25 16:48 12.5 MLS/HR Vancomycin HCl 250 ml @ 250 mls/hr Q12H IV 06/22/24 20:00 Laboratory Results Laboratory Tests 06/21/24 03:31 06/22/24 06:53 Chemistry Test 06/22/24 06:53 Calcium Level 8.5 mg/dL (8.7-10.4) L Urinalysis Test 06/21/24 09:10 Urine Color Yellow (Yellow) Urine Clarity Clear (Clear) Urine pH 5.5 (5.0-9.0) Urine Specific [place] 1.025 (1.001-1.035) Urine Protein 1+ (Negative) H Urine Ketones 1+ (Negative) H Urine Blood 1+ /uL (Negative) H Urine Nitrite Negative (Negative) Urine Bilirubin Negative (Negative) Urine Urobilinogen Normal mg/dL (Negative) Urine Leukocyte Esterase Negative /uL (Negative) Urine RBC 16 /hpf (0 - 3) Urine Microscopic WBC 3 /HPF (0-3) Urine Squamous Epithelial Cells None seen /hpf (<5) Urine Calcium Oxalate Crystals Few (None Seen) Urine Bacteria Few /hpf (None Seen) H Urine Mucus Few (None Seen) Urine Glucose Normal mg/dL (Normal) Microbiology Microbiology Date/Time Source Procedure Growth Status 06/20/24 05:30 Blood Blood Culture - Preliminary NO GROWTH AFTER 48 HOURS OF INCUBATION. Resulted 06/20/24 04:29 Leg Left Gram Stain - Final Resulted 06/20/24 04:29 Wound Culture - Preliminary Staphylococcus aureus Pseudomonas aeruginosa Resulted Assessment/Plan Assessment/Plan 73-year-old male with a known history of COPD who initially presented to the hospital with a recurrent falls found to have 1. Acute L1 compression fracture 2. Pelvic pain 3. Bilateral lower extremity open wounds 4. COPD not-in exacerbation -follow up wound Gram stain and culture shows evidence of Staph and Pseudomonas, continue vancomycin-and cefepime Continue wound care, Infectious Disease consultation Plan discussed with: Patient, Spouse My Orders Orders - JOVITA PETERS MD Procedure Category Date Status Time Vancomycin 1gm/250ml PHA 06/22/24 In Process Kit 20:00 Vancomycin,Trough LAB 06/24/24 Verified 07:00 Vancomycin Per ALETHEA 06/24/24 In Process Pharmacy Protoc 08:00 Creatinine LAB 06/23/24 Verified 05:00 Creatinine LAB 06/24/24 Verified 07:00 Date of Service: Jun 22, 2024 Billing Provider: JOVITA PETERS MD Common Visit Codes: NOT BILLABLE JOVITA PETERS MD Jun 22, 2024 17:47
[2024-06-22] MEDS: VANCOMYCIN 1GM/250ML KIT 250 ML IV SCH (20:28)
[2024-06-23] VITALS (8 sets, daily range): BP systolic 92–132; BP diastolic 49–64; PULSE 56–85; RESP 16–18; TEMP 97.4–98.6; O2SAT 90–96
--- NOTE | 2024-06-23 15:02 | DVHPN2 ---
Subjective Overnight events noted. There is no family member at bedside today. Patient's foot wound looking better maybe one more day of IV antibiotics with a discharged to nursing home facility for rehab. 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 Extremity bilateral lower extremity wounds status post antiseptic dressing Medications Current Medications Medications Dose Ordered Sig/Cami Route Start Time Stop Time Status Last Admin Dose Admin Sodium Chloride 1,000 ml @ 60 mls/hr [id number] IV 06/20/24 18:00 06/23/24 12:59 60 MLS/HR Acetaminophen/ Hydrocodone Bitart 1 tab Q4HP PRN PO 06/20/24 18:00 06/22/24 21:54 1 TAB Ondansetron HCl 4 mg Q4HP PRN IV 06/20/24 18:00 Enoxaparin Sodium 40 mg DAILY SC 06/21/24 10:00 06/23/24 10:49 40 MG Zinc Sulfate 220 mg DAILY PO 06/21/24 10:00 06/23/24 10:49 220 MG Ascorbic Acid 500 mg BID PO 06/20/24 22:00 06/23/24 10:49 500 MG Multivitamins 1 tab DAILY PO 06/21/24 10:00 06/23/24 10:49 1 TAB Acetaminophen 650 mg Q6HP PRN PO 06/20/24 18:00 06/20/24 21:41 650 MG Nitroglycerin 0.4 mg Q5MINP PRN SL 06/20/24 18:00 Morphine Sulfate 2 mg Q30M PRN IV 06/20/24 18:00 Vancomycin HCl 0 ml @ 0 mls/hr UD IV 06/20/24 18:00 Cefepime HCl 50 ml @ 12.5 mls/hr Q8HR IV 06/20/24 22:00 06/23/24 14:36 12.5 MLS/HR Vancomycin HCl 250 ml @ 250 mls/hr Q12H IV 06/22/24 20:00 06/23/24 08:28 250 MLS/HR Laboratory Results Laboratory Tests 06/21/24 03:31 06/22/24 06:53 06/23/24 05:09 Urinalysis Test 06/21/24 09:10 Urine Color Yellow (Yellow) Urine Clarity Clear (Clear) Urine pH 5.5 (5.0-9.0) Urine Specific [place] 1.025 (1.001-1.035) Urine Protein 1+ (Negative) H Urine Ketones 1+ (Negative) H Urine Blood 1+ /uL (Negative) H Urine Nitrite Negative (Negative) Urine Bilirubin Negative (Negative) Urine Urobilinogen Normal mg/dL (Negative) Urine Leukocyte Esterase Negative /uL (Negative) Urine RBC 16 /hpf (0 - 3) Urine Microscopic WBC 3 /HPF (0-3) Urine Squamous Epithelial Cells None seen /hpf (<5) Urine Calcium Oxalate Crystals Few (None Seen) Urine Bacteria Few /hpf (None Seen) H Urine Mucus Few (None Seen) Urine Glucose Normal mg/dL (Normal) Microbiology Microbiology Date/Time Source Procedure Growth Status 06/20/24 05:30 Blood Blood Culture - Preliminary NO GROWTH AFTER 72 HOURS OF INCUBATION. Resulted 06/20/24 04:29 Leg Left Gram Stain - Final Complete 06/20/24 04:29 Wound Culture - Final Staphylococcus aureus Pseudomonas aeruginosa Stenotrophomonas maltophilia Enterococcus faecalis Streptococcus Group F Complete Assessment/Plan Assessment/Plan 73-year-old male with a known history of COPD who initially presented to the hospital with a recurrent falls found to have 1. Acute L1 compression fracture 2. Pelvic pain 3. Bilateral lower extremity open wounds 4. COPD not-in exacerbation -follow up wound Gram stain and culture shows evidence of Staph and Pseudomonas, continue vancomycin-and cefepime Continue wound care, Infectious Disease consultation appreciated, discharge plan to nursing home facility Plan discussed with: Patient Date of Service: Jun 23, 2024 Billing Provider: JOVITA PETERS MD Common Visit Codes: NOT BILLABLE JOVITA PETERS MD Jun 23, 2024 15:02
--- NOTE | 2024-06-23 22:06 | DVHPN2 ---
Progress Note - Dictate Date Seen: Jun 23, 2024 Subjective Patient's foot wound looking better. No new acute complaints noted at this time. vital signs Vital Sign Date Time Temp Pulse Resp B/P (MAP) Pulse Ox O2 Delivery O2 Flow Rate FiO2 06/23/24 21:00 98.2 56 16 98/64 (75) 96 98.2 06/23/24 08:00 Nasal Cannula* 2 28 Total Intake and Output 06/22/24 06/22/24 06/23/24 14:59 22:59 06:59 Intake Total 380 ml 1260 ml 210 ml Output Total 1000 ml 550 ml Balance 380 ml 260 ml -340 ml medications Current Medications Medications Dose Ordered Sig/Cami Route Start Time Stop Time Status Last Admin Dose Admin Sodium Chloride 1,000 ml @ 60 mls/hr [id number] IV 06/20/24 18:00 06/23/24 12:59 60 MLS/HR Acetaminophen/ Hydrocodone Bitart 1 tab Q4HP PRN PO 06/20/24 18:00 06/22/24 21:54 1 TAB Ondansetron HCl 4 mg Q4HP PRN IV 06/20/24 18:00 Enoxaparin Sodium 40 mg DAILY SC 06/21/24 10:00 06/23/24 10:49 40 MG Zinc Sulfate 220 mg DAILY PO 06/21/24 10:00 06/23/24 10:49 220 MG Ascorbic Acid 500 mg BID PO 06/20/24 22:00 06/23/24 10:49 500 MG Multivitamins 1 tab DAILY PO 06/21/24 10:00 06/23/24 10:49 1 TAB Acetaminophen 650 mg Q6HP PRN PO 06/20/24 18:00 06/23/24 17:52 650 MG Nitroglycerin 0.4 mg Q5MINP PRN SL 06/20/24 18:00 Morphine Sulfate 2 mg Q30M PRN IV 06/20/24 18:00 Vancomycin HCl 0 ml @ 0 mls/hr UD IV 06/20/24 18:00 Cefepime HCl 50 ml @ 12.5 mls/hr Q8HR IV 06/20/24 22:00 06/23/24 14:36 12.5 MLS/HR Vancomycin HCl 250 ml @ 250 mls/hr Q12H IV 06/22/24 20:00 06/23/24 08:28 250 MLS/HR objective General Appearance: Well developed, Well nourished, Normal Appearance Head Exam: Normal inspection Neck Exam: Normal inspection, Non-tender, Normal alignment Eye Exam: right eye Normal inspection, right eye PERRL, right eye EOMI; left eye Other (blind) Ear Exam: bilateral ear Auricle normal Nasal Exam: Normal inspection Mouth: Normal Inspection Pulmonary/Respiratory: Normal inspection, Normal breath sounds, Chest non- tender Cardiovascular/Chest: Normal inspection, Bradycardia, Other (bigeminy pvc's) Abdominal Exam: Normal bowel sounds, Soft, No tenderness Back Exam: Other (lower back pain) Foot: bilateral foot soft tissue tenderness, bilateral foot swelling, bilateral foot other (bilateral lower extremity wounds) 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, 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, PERRL (right eye) Neuro/Mental St: Alert, Oriented Appearance: Appropriate insight, Disheveled Eye contact/ Speech: Cooperative, Good eye contact, 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 Thoughts/Psych: Normal thought pattern Skin Exam: Normal color, Warm/dry, Other (bilateral lower extremity wounds) laboratory and microbiology Laboratory Tests 06/23/24 05:09 06/22/24 06:53 06/21/24 03:31 Test 06/22/24 06:53 Range/Units Serum Glucose 95 74-106 mg/dL Assessment/Plan Patient is a 73-year-old male presents to the hospital with: Bilateral lower leg cellulitis with open wounds Lumbar burst fracture Acute L1 fracture Pelvic pain Recommendations: Antibiotic status: Vancomycin IV [Started on 06/20 - Ongoing] Cefepime IV [ Started on 06/20 - Ongoing] 06/24, Vancomycin Trough is 17.3. 06/20, Wound culture preliminary showed: Beta-Hemolytic Group F Streptococcus and Staphylococcus aureus 06/20, Blood culture preliminary showed no growth 06/20, Pelvis CT showed No evidence of acute fracture. Potassium is normal Thank you for consult. Dietary Evaluation Review Comments: 1.Check A1C, consider CCHO-60 if glucose is not under contol, 2.To prmote wound healing: Lino BID, and encourage increase protein PO intake. Expected Outcomes/Goals: healed wound, consider RADHA KAT MD Jun 23, 2024 22:06
[2024-06-24] VITALS (8 sets, daily range): BP systolic 114–135; BP diastolic 51–87; PULSE 63–95; RESP 16–20; TEMP 97.9–99.2; O2SAT 92–96
[2024-06-24] MEDS: VANCOMYCIN 1GM/250ML KIT 250 ML IV SCH (12:08)
--- NOTE | 2024-06-24 12:45 | DVHPN2 ---
Progress Note - Dictate Date Seen: Jun 24, 2024 Subjective Patient's foot wound looking better. No new acute complaints noted at this time. vital signs Vital Sign Date Time Temp Pulse Resp B/P (MAP) Pulse Ox O2 Delivery O2 Flow Rate FiO2 06/24/24 08:36 98.1 63 17 135/60 (85) 94 98.1 06/24/24 08:30 Nasal Cannula* 2 28 Total Intake and Output 06/23/24 06/23/24 06/24/24 15:00 23:00 07:00 Intake Total 530 ml 840 ml 740 ml Output Total 750 ml 475 ml Balance 530 ml 90 ml 265 ml medications Current Medications Medications Dose Ordered Sig/Cami Route Start Time Stop Time Status Last Admin Dose Admin Sodium Chloride 1,000 ml @ 60 mls/hr [id number] IV 06/20/24 18:00 06/23/24 12:59 60 MLS/HR Acetaminophen/ Hydrocodone Bitart 1 tab Q4HP PRN PO 06/20/24 18:00 06/22/24 21:54 1 TAB Ondansetron HCl 4 mg Q4HP PRN IV 06/20/24 18:00 Enoxaparin Sodium 40 mg DAILY SC 06/21/24 10:00 06/24/24 09:40 40 MG Zinc Sulfate 220 mg DAILY PO 06/21/24 10:00 06/24/24 09:39 220 MG Ascorbic Acid 500 mg BID PO 06/20/24 22:00 06/24/24 09:39 500 MG Multivitamins 1 tab DAILY PO 06/21/24 10:00 06/24/24 09:39 1 TAB Acetaminophen 650 mg Q6HP PRN PO 06/20/24 18:00 06/23/24 17:52 650 MG Nitroglycerin 0.4 mg Q5MINP PRN SL 06/20/24 18:00 Morphine Sulfate 2 mg Q30M PRN IV 06/20/24 18:00 Vancomycin HCl 0 ml @ 0 mls/hr UD IV 06/20/24 18:00 Cefepime HCl 50 ml @ 12.5 mls/hr Q8HR IV 06/20/24 22:00 06/23/24 23:14 12.5 MLS/HR Vancomycin HCl 250 ml @ 250 mls/hr Q14H IV 06/24/24 10:00 06/24/24 12:08 250 MLS/HR objective General Appearance: Well developed, Well nourished, Normal Appearance Head Exam: Normal inspection Neck Exam: Normal inspection, Non-tender, Normal alignment Eye Exam: right eye Normal inspection, right eye PERRL, right eye EOMI; left eye Other (blind) Ear Exam: bilateral ear Auricle normal Nasal Exam: Normal inspection Mouth: Normal Inspection Pulmonary/Respiratory: Normal inspection, Normal breath sounds, Chest non- tender Cardiovascular/Chest: Normal inspection, Bradycardia, Other (bigeminy pvc's) Abdominal Exam: Normal bowel sounds, Soft, No tenderness Back Exam: Other (lower back pain) Foot: bilateral foot soft tissue tenderness, bilateral foot swelling, bilateral foot other (bilateral lower extremity wounds) 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, 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, PERRL (right eye) Neuro/Mental St: Alert, Oriented Appearance: Appropriate insight, Disheveled Eye contact/ Speech: Cooperative, Good eye contact, 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 Thoughts/Psych: Normal thought pattern Skin Exam: Normal color, Warm/dry, Other (bilateral lower extremity wounds) laboratory and microbiology Laboratory Tests 06/24/24 06:45 06/22/24 06:53 06/21/24 03:31 Test 06/22/24 06:53 Range/Units Serum Glucose 95 74-106 mg/dL Assessment/Plan Patient is a 73-year-old male presents to the hospital with: Bilateral lower leg cellulitis with open wounds Lumbar burst fracture Acute L1 fracture Pelvic pain Recommendations: Antibiotic status: Vancomycin IV [Started on 06/20 - Ongoing] Cefepime IV [ Started on 06/20 - Ongoing] 06/24, Vancomycin Trough is 17.3. 06/20, Wound culture preliminary showed: Beta-Hemolytic Group F Streptococcus and Staphylococcus aureus 06/20, Blood culture preliminary showed no growth 06/20, Pelvis CT showed No evidence of acute fracture. Potassium is normal Thank you for consult. Dietary Evaluation Review Comments: 1.Check A1C, consider CCHO-60 if glucose is not under contol, 2.To prmote wound healing: Lino BID, and encourage increase protein PO intake. Expected Outcomes/Goals: healed wound, consider RADHA KAT MD Jun 24, 2024 12:45
--- NOTE | 2024-06-24 17:23 | DVHDS2 ---
Discharge Summary Date of Admission Jun 20, 2024 at 17:53 Date of Discharge: Jun 24, 2024 Labs/Diagnostic Data: Laboratory Results Test 06/24/24 06:45 06/22/24 06:53 06/21/24 09:10 06/21/24 03:31 Creatinine 0.59 mg/dL (0.700-1.30) Glomerular Filtration Rate Calc 101 mL/min (>90) Vancomycin Level Trough 17.3 ug/mL (5-10) Sodium Level 140 mmol/L (136-145) Potassium Level 3.7 mmol/L (3.5-5.1) Chloride Level 108 mmol/L (98-107) Carbon Dioxide Level 25 mmol/L (20-31) Anion Gap 7 (5-15) Blood Urea Nitrogen 9 mg/dL (9-23) BUN/Creatinine Ratio 13.2 (10.0-20.0) Serum Glucose 95 mg/dL (74-106) Calcium Level 8.5 mg/dL (8.7-10.4) Urine Color Yellow (Yellow) Urine Clarity Clear (Clear) Urine pH 5.5 (5.0-9.0) Urine Specific [place] 1.025 (1.001-1.035) Urine Protein 1+ (Negative) Urine Ketones 1+ (Negative) Urine Blood 1+ /uL (Negative) Urine Nitrite Negative (Negative) Urine Bilirubin Negative (Negative) Urine Urobilinogen Normal mg/dL (Negative) Urine Leukocyte Esterase Negative /uL (Negative) Urine RBC 16 /hpf (0 - 3) Urine Microscopic WBC 3 /HPF (0-3) Urine Squamous Epithelial Cells None seen /hpf (<5) Urine Calcium Oxalate Crystals Few (None Seen) Urine Bacteria Few /hpf (None Seen) Urine Mucus Few (None Seen) Urine Glucose Normal mg/dL (Normal) White Blood Count 6.1 10^3/uL (4.4-10.8) Red Blood Count 3.86 10^6/uL (4.5-5.90) Hemoglobin 12.1 g/dL (13.5-17.5) Hematocrit 35.7 % (41.0-53.0) Mean Corpuscular Volume 92.4 fL (80.0-100.0) Mean Corpuscular Hemoglobin 31.3 pg (28.0-32.0) Mean Corpuscular Hemoglobin Concent 33.8 g/dL (32.0-36.0) Red Cell Distribution Width 14.0 % (11.8-14.3) Platelet Count 266 10^3/uL (140-450) Mean Platelet Volume 7.4 fL (6.9-10.8) Neutrophils (%) (Auto) 69.7 % (37.0-80.0) Lymphocytes (%) (Auto) 17.0 % (10.0-50.0) Monocytes (%) (Auto) 9.7 % (0.0-12.0) Eosinophils (%) (Auto) 3.1 % (0.0-7.0) Basophils (%) (Auto) 0.5 % (0.0-2.0) Neutrophils # (Auto) 4.3 10 ^3/uL (1.6-8.6) Lymphocytes # (Auto) 1.0 10 ^3/uL (0.4-5.4) Monocytes # (Auto) 0.6 10 ^3/uL (0-1.3) Eosinophils # (Auto) 0.2 10 ^3/uL (0-0.8) Basophils # (Auto) 0 10 ^3/uL (0-0.2) Nucleated Red Blood Cells 0.1 % Magnesium Level 1.9 mg/dL (1.6-2.6) B-Type Natriuretic Peptide 265.90 pg/mL (0-100) Test 06/20/24 05:15 Lactic Acid Level 1.6 mmol/L (0.4-2.0) Total Bilirubin 0.7 mg/dL (0.2-1.0) Aspartate Amino Transferase (AST) 30 U/L (13-40) Alanine Aminotransferase (ALT) 34 U/L (7-40) Alkaline Phosphatase 129 U/L (46-116) Total Protein 7.0 g/dL (5.7-8.2) Albumin 4.0 g/dL (3.2-4.8) Other Laboratory Tests 06/24/24 06:45 06/22/24 06:53 06/21/24 03:31 Brief Hx & Hospital Course: 73-year-old male with a known history of COPD who initially presented to the hospital with a recurrent falls found to have acute L1 compression fracture. Patient also had pelvic pain but no evidence of a hip fracture. Patient was found to have bilateral lower extremity open wounds receiving vancomycin 7 point. Infectious Disease was consulted as well as spine surgery spine surgery recommended outpatient follow up no indication for L1 compression fracture surgery inpatient. Patient will be given p.o. antibiotics and and will be sent to custodial facility. Dr. Quinn Boyd was on the floor who recommended outpatient follow up with him but he will do the note. Patient will be given p.o. antibiotics, also wound care at the custodial facility for bilateral foot wound and activity with weight-bearing as tolerated. Condition at Discharge: Stable Final Diagnosis/Problems List 1. Acute metabolic encephalopathy/septic encephalopathy, resolved 2. Complicated urinary tract infection with Klebsiella and Pseudomonas 3. Sepsis secondary to UTI 4. Scrotal cellulitis/epididymoorchitis/septated hydrocele, urology recommended only ice therapy and antibiotics, no surgical intervention 5. Chronic indwelling Diallo catheter 6. Prostate enlargement 7. Leukocytosis suspect leukemoid reaction, improved [facility] Discharge Will this Physician continue t: No Discharge Instruct/Medications Diet: Cardiac 2g Na,low cholest Activity: See Comment Activity comment: 50 add weight-bearing on bilateral feet as tolerated Follow Up/Referral: Follow up with the PCP in 1-2 weeks Follow up with infectious disease specialist, Dalila Levin in 1 week Medications: Levaquin and Keflex as prescribed Discharge Statement: "Patient was advised to return to the ER or call 911 if any headaches, dizziness, shortness of breath, chest pain, abdominal pain, bleeding, fevers, or worsening of medical condition. Patient was counseled about treatment plan, medications, possible side effects, patientverbalized understanding. All questions were answered to the best of my ability. This discharge took greater then 30 minutes in planning, reviewing documentation, counseling the patient, and discussing with other team members." ASSESSMENT ASSESSMENT Assessment 1. Acute metabolic encephalopathy/septic encephalopathy, resolved 2. Complicated urinary tract infection with Klebsiella and Pseudomonas 3. Sepsis secondary to UTI 4. Scrotal cellulitis/epididymoorchitis/septated hydrocele, urology recommended only ice therapy and antibiotics, no surgical intervention 5. Chronic indwelling Diallo catheter 6. Prostate enlargement 7. Leukocytosis suspect leukemoid reaction, improved Date of Service: Jun 24, 2024 Billing Provider: JOVITA PETERS MD Common Visit Codes: NOT BILLABLE JOVITA PETERS MD Jun 24, 2024 17:23
== END 2024-06-24 22:37 | DRG 871 ==
LOC: EDBD 03:46 → ER 03:46 → EDUNIT# 03:46 → OVERFLOW 17:53 → TELE-CENTR 06-21 22:40 → CENTRAL 06-24 19:02
PROVIDERS: ADMIT Internal Medicine; ATTEND Internal Medicine
DX: A41.52 Sepsis due to Pseudomonas (principal); G93.41 Metabolic encephalopathy; S32.011A Stable burst fracture of first lumbar vertebra, initial encounter for closed fracture; L03.115 Cellulitis of right lower limb; L03.116 Cellulitis of left lower limb; L97.912 Non-pressure chronic ulcer of unspecified part of right lower leg with fat layer exposed; N39.0 Urinary tract infection, site not specified; M48.061 Spinal stenosis, lumbar region without neurogenic claudication; E87.6 Hypokalemia; I49.3 Ventricular premature depolarization; J44.9 Chronic obstructive pulmonary disease, unspecified; F17.210 Nicotine dependence, cigarettes, uncomplicated; G40.909 Epilepsy, unspecified, not intractable, without status epilepticus; I10 Essential (primary) hypertension; S91.301A Unspecified open wound, right foot, initial encounter; S91.302A Unspecified open wound, left foot, initial encounter; B96.1 Klebsiella pneumoniae [K. pneumoniae] as the cause of diseases classified elsewhere; N45.3 Epididymo-orchitis; N43.2 Other hydrocele; N40.0 Benign prostatic hyperplasia without lower urinary tract symptoms; Z79.899 Other long term (current) drug therapy; Z82.0 Family history of epilepsy and other diseases of the nervous system; W01.0XXA Fall on same level from slipping, tripping and stumbling without subsequent striking against object, initial encounter; X58.XXXA Exposure to other specified factors, initial encounter; Y93.89 Activity, other specified; Y92.89 Other specified places as the place of occurrence of the external cause; Y99.8 Other external cause status
CPT/HCPCS: 36415; 72131; 72192; 80048; 80053; 80202; 81001; 82565; 83605; 83735; 83880; 84132; 85025; 87040; 87077; 87186; 87205; 93005; 93306; 96365; G0378

== ENCOUNTER 2025-01-20 08:53 | Inpatient (IN) | payer BC, MEDICAID ==
[~2025-01-20] VITALS: Ht 162.6 cm; Wt 73.0 kg
[~2025-01-20 08:53] MED LIST changes: -ALBU0.084 NEB; -BUME2TAB5 PO; +FURO40TA4 PO; -IPR002IS INH; +QUET50TA PO
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
[2025-01-20] MEDS ORDERED: ACETAMINOPHEN 325 MG TAB PO PRN (10:15)
--- NOTE | 2025-01-20 10:23 | DVHHP2 ---
History of Present Illness Reason for Visit: Bilateral lower extremity cellulitis History of Present Illness Christiano Saab is a 74-year-old male with past medical history of chronic back pain, fusion pumps, left eye blindness, right cataract surgery, abdominal surgery, right tib-fib surgery, lumbar post lami and COPD who presents to the ED with bilateral lower extremity cellulitis ongoing for several months. Patient reports that initially it started when he had fusion pump some placed and he reported that the doctor knicked a nerve which transpired into bilateral lower extremity redness and cellulitis. Patient states that he was walking before but now he is wheelchair-bound. He reports that he lives at home with his family. Patient denies any recent travels, recent sick contacts, recent ingestion of spoiled food, chest pain, shortness of breath, fever, chills, lightheadedness, weakness, dizziness, abdominal pain, nausea, vomiting, diarrhea, or urinary symptoms. Pulmonary: COPD Past Medical History Left eye blindness History of chronic back pain Past Surgical History: Other (Right eye cataract surgery, lumbar post lami, right tib-fib surgery, and abdominal surgery) Family History: Other (Mom with malignant neoplasm of the ovary and dad with seizures both .) Smoke: No ALCOHOL: none Drugs: None Lives: with Family Domestic Violence: Neg Review of Systems Musculoskeletal: leg pain Skin: Lesions Allergies: Coded Allergies: NO KNOWN ALLERGIES (Unverified , 01/11/19) Exam Vital Signs Vital Signs Date Time Temp Pulse Resp B/P (MAP) Pulse Ox O2 Delivery O2 Flow Rate FiO2 01/20/25 09:00 98.6 80 22 126/73 91 98.6 General Appearance: Alert, Oriented X3, Cooperative, No acute distress HEENT: Atraumatic, EOMI, Mucous membr. moist/pink Respiratory: Normal air movement Cardiovascular: Regular rate, Normal S1, Normal S2 Abdominal: Normal bowel sounds, Soft Neuro: 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, Sensation intact Psych/Mental Status: Mental status NL, Mood NL Labs/Xrays Technique: Real-time ultrasound imaging, with color Doppler and compression of the bilateral common femoral vein, femoral vein, greater saphenous vein, and popliteal vein. Indication: r/o dvt Comparison: US LT LOWER DVT on DOS: 09/14/23, US BILAT LOWER DVT on DOS: 09/06/23 Findings: There is normal compressibility and flow augmentation in all of the imaged deep veins. There are no filling defects. Impression: No evidence of DVT in the bilateral lower extremities SEPSIS Sepsis Screen Date sepsis recognized/suspect: Jan 20, 2025 Time Sepsis recognized/suspect: 899 Recent Procedure: No On Antibiotic Therapy: Yes Respiratory Rate >20: Yes Heart Rate >90: No Temp<36 C (96.8 F) or >38.3 C: No SBP <90 or MAP <65 mmHG: No New Acute Mental Status Change: No Is the patient on CPAP, BIPAP,: No Physician Orders Organizational Psychologist (01/20/25 ) Complete Blood Count (01/20/25 09:42) Comprehensive Metabolic Panel (01/20/25 09:42) C-Reactive Protein (01/20/25 09:42) Erythrocyte Sedimentation Rate (01/20/25 09:42) Lactic Acid W/ Reflex Order (01/20/25 09:42) B-Type Natriuretic Peptide (01/20/25 09:42) Vancomycin 1.75gm/350ml (01/20/25 10:00) Piperacillin-Tazob 3.375gm (Zosyn 3.375g (01/20/25 10:00) Blood Culture (01/20/25 09:54) Vital Signs Date Time Temp Pulse Resp B/P (MAP) Pulse Ox O2 Delivery O2 Flow Rate FiO2 01/20/25 09:00 98.6 80 22 126/73 91 98.6 Assessment/Plan Assessment/Plan Assessment Bilateral lower extremity cellulitis Rule out sepsis History of chronic back pain History of COPD History of lumbar post lami History of right tib-fib surgery History of left eye blindness History of right eye cataract surgery History of abdominal surgery Wheelchair-bound Plan [facility] IV antibiotics-clindamycin Vancomycin + Zosyn given in ED Blood cultures Lactic level BNP ESR CRP CT lower extremity Wound culture with Gram stain Wound consult Bilateral lower extremity venous ultrasound Antiemetics Pain management IV morphine Duo nebs Diet Home medications reconciled DVT prophylaxis-Lovenox PUD prophylaxis-PPIs Discussed plan of care with patient and nurse Counseled patient on cessation of alcohol use and tobacco use [id number] Behavior change smoking greater than 10 minutes about use of other options also gave option of nicotine patch [id number] Preventive counseling healthy eating habits, physical activity, and regular checkups Plan discussed with: Patient Date of Service: Jan 20, 2025 Billing Provider: KEVIN SHEIKH Common Visit Codes: [id number] INP/OBS CARE (HIGH) Secondary Visit Codes: [id number] COUNSELING IND KEVIN SHEIKH Jan 20, 2025 10:23
[2025-01-20 10:31] LABS: Hematocrit 39.7 % (41.0-53.0); Hemoglobin 13.4 g/dL (13.5-17.5); Mean Corpuscular Hemoglobin 30.7 pg (28.0-32.0); Mean Corpuscular Volume 90.7 fL (80.0-100.0); Nucleated Red Blood Cells % 0.1 %
[2025-01-20 10:45] LABS: Alanine Aminotransferase 24 U/L (7-40); Alkaline Phosphatase 110 U/L (46-116); Anion Gap 7 (5-15); BUN/Creatinine Ratio 18.9 (10.0-20.0); Blood Urea Nitrogen 17 mg/dL (9-23); Calcium 9.1 mg/dL (8.7-10.4); Carbon Dioxide 29 mmol/L (20-31); Chloride 104 mmol/L (98-107); Glucose 95 mg/dL (74-106); Potassium 4.3 mmol/L (3.5-5.1); Sodium 140 mmol/L (136-145); Total Protein 7.6 g/dL (5.7-8.2)
[2025-01-20 10:46] LABS: Albumin 3.9 g/dL (3.2-4.8); Bilirubin, Total 0.4 mg/dL (0.2-1.0)
--- NOTE | 2025-01-20 11:16 | DVH ---
Technique: Real-time ultrasound imaging, with color Doppler and compression of the bilateral common femoral vein, femoral vein, greater saphenous vein, and popliteal vein. Indication: r/o dvt Comparison: US LT LOWER DVT on DOS: 09/14/23, US BILAT LOWER DVT on DOS: 09/06/23 Findings: There is normal compressibility and flow augmentation in all of the imaged deep veins. There are no f illing defects. Impression: No evidence of DVT in the bilateral lower extremities
--- NOTE | 2025-01-20 11:26 | DVH ---
CLINICAL INDICATION: r/o abscess TECHNIQUE: Noncontrast CT of the right lower extremity was performed. Sagittal and coronal reformatte d images are provided. COMPARISON: None. CT Dose: CTDI volume is mGy. Dose-length product is mGy*cm FINDINGS: No fracture or dislocation. No cortical destruction. The joint spaces are maintained. Soft tissue swe lling in the lower extremity. No fluid collection. Muscles are unremarkable. There is a skin blister in the Lateral lower extremity just below the mid calf. The contralateral leg is partially included and demonstrates subcutaneous edema. Hardware is noted on the security installation technician image of the contralateral leg. IMPRESSION: 1. No acute osseous abnormality. 2. Mild subcutaneous edema in the right lower extremity which may reflect cellulitis in the appropria te clinical setting. Skin blister noted in the lateral lower extremity. No fluid collection. 3. Soft tissue edema in the contralateral leg. All CT scans at this medical facility are performed using dose modulation techniques as appropriate t o a performed exam including the following: Automated exposure control was utilized; adjustment of th e MA and/or KV according to patient size; and use of iterative reconstruction technique.
--- NOTE | 2025-01-20 11:35 | DVH ---
CLINICAL INDICATION: r/o abscess TECHNIQUE: Noncontrast CT of the left lower extremity was performed. Sagittal and coronal reformatted images are provided. COMPARISON: None available at the time of this interpretation. CT Dose: CTDI volume is 7.8 mGy. Dose-length product is 521.7 mGy*cm FINDINGS: No fracture or dislocation. No cortical erosion. Open reduction internal fixation in the p roximal tibia. Medial compartment joint space narrowing of the knee. Ankle joint spaces are maintain ed. 2 mm osteochondral lesion in the lateral talar dome. Circumferential soft tissue edema in the low er extremity. No fluid collection. Muscles are unremarkable. IMPRESSION: 1. No acute fracture or dislocation in the left lower extremity. 2. No cortical erosion. 3. Soft tissue swelling in the left lower extremity without fluid collection. Findings may represent cellulitis. 4. 2 mm osteochondral lesion in the lateral talar dome. All CT scans at this medical facility are performed using dose modulation techniques as appropriate t o a performed exam including the following: Automated exposure control was utilized; adjustment of th e MA and/or KV according to patient size; and use of iterative reconstruction technique.
[2025-01-20] MEDS: CLINDAMYCIN 600MG IV 50 ML IV SCH (12:02)
[2025-01-20] MEDS: PIPERACILLIN-TAZOB 3.375GM 100 ML IV ONE (12:36)
[2025-01-20] MEDS: HYDROcodone-ACET 5/325MG TAB PO PRN (13:41)
[2025-01-20] MEDS: VANCOMYCIN 1.75GM/350ML 350 ML IV ONE (13:42)
[2025-01-20 16:47] VITALS: BP 108/63; PULSE 97; RESP 16; TEMP 97.5; O2SAT 93
[2025-01-20 19:50] VITALS: RESP 18; O2SAT 97
[2025-01-20 21:00] VITALS: BP 121/82; PULSE 94; RESP 18; TEMP 98.1; O2SAT 94
[2025-01-20 23:30] LABS: Urine Protein, UAD Negative (Negative)
[2025-01-21] VITALS (8 sets, daily range): BP systolic 103–125; BP diastolic 71–87; PULSE 68–76; RESP 16–20; TEMP 97.5–98.6; O2SAT 91–96
[2025-01-21 04:57] LABS: Hematocrit 38.0 % (41.0-53.0); Hemoglobin 12.3 g/dL (13.5-17.5); Mean Corpuscular Hemoglobin 31.2 pg (28.0-32.0); Mean Corpuscular Volume 96.6 fL (80.0-100.0); Nucleated Red Blood Cells % 0.1 %
[2025-01-21 05:45] LABS: Alanine Aminotransferase 25 U/L (7-40); Albumin 3.5 g/dL (3.2-4.8); Alkaline Phosphatase 92 U/L (46-116); Anion Gap 11 (5-15); BUN/Creatinine Ratio 21.5 (10.0-20.0); Blood Urea Nitrogen 17 mg/dL (9-23); Carbon Dioxide 22 mmol/L (20-31); Glucose 87 mg/dL (74-106); Potassium 4.2 mmol/L (3.5-5.1); Sodium 141 mmol/L (136-145); Total Protein 6.8 g/dL (5.7-8.2)
[2025-01-21 05:46] LABS: Bilirubin, Total 0.6 mg/dL (0.2-1.0)
[2025-01-21 06:11] LABS: Calcium 8.6 mg/dL (8.7-10.4); Chloride 108 mmol/L (98-107)
[2025-01-21] MEDS: ENOXAPARIN SOD 40 MG/0.4 ML SYRINGE SC SCH (11:28)
[2025-01-21] MEDS: PANTOPRAZOLE 40 MG/10 ML VIAL INJ IV SCH (11:28)
[2025-01-21] MEDS ORDERED: VANCOMYCIN PER PHARMACY 0 MG IV SCH (12:45)
--- NOTE | 2025-01-21 12:49 | DVHPN2 ---
Progress Note - Dictate Date Seen: Jan 21, 2025 Medical Necessity Reason Pt with a Central, PICC or Fol: No Subjective Took over patient's care today. Patient is seen and evaluated. Admitted here for lower extremity cellulitis and leg swelling. Patient denies any complaints. Apparently he is mostly wheelchair and bed-bound for many years. His cares for him. He tells me has redness in lower extremities chronically for many months. vital signs Vital Sign Date Time Temp Pulse Resp B/P (MAP) Pulse Ox O2 Delivery O2 Flow Rate FiO2 01/21/25 08:19 97.7 74 18 103/71 (82) 91 97.7 01/20/25 19:50 Room Air* 0 21 Total Intake and Output 01/20/25 01/20/25 01/21/25 15:00 23:00 07:00 Intake Total 220 ml Balance 220 ml medications Current Medications Medications Dose Ordered Sig/Cami Route Start Time Stop Time Status Last Admin Dose Admin Clindamycin Phosphate 50 ml @ 50 mls/hr Q8HR IV 01/20/25 10:15 01/21/25 05:02 50 MLS/HR Acetaminophen/ Hydrocodone Bitart 1 tab Q4HP PRN PO 01/20/25 10:15 01/20/25 13:41 1 TAB Ondansetron HCl 4 mg Q4HP PRN IV 01/20/25 10:15 Enoxaparin Sodium 40 mg DAILY SC 01/21/25 10:00 01/21/25 11:28 40 MG Acetaminophen 650 mg Q6HP PRN PO 01/20/25 10:15 Pantoprazole Sodium 40 mg DAILY IV 01/21/25 10:00 01/21/25 11:28 40 MG Morphine Sulfate 1 mg Q4HP PRN IV 01/20/25 12:00 objective Alert awake oriented x3. HEENT neck supple no JVD. Heart regular rate rhythm S1-S2. Lungs fair air movement without rales wheezes. Abdomen obese soft positive bowel sounds. Extremities lower extremities notable for chronic venous stasis dermatitis and redness. 1+ pitting edema noted. No significant skin breakdown with drainage or foul smell noted. laboratory and microbiology Laboratory Tests 01/21/25 04:40 Test 01/21/25 04:40 Range/Units Serum Glucose 87 74-106 mg/dL Assessment/Plan Given his leg swelling I will give him trial of IV Lasix while in the hospital to see if the erythema we will also improved. We will adjust his antibiotics to Rocephin and vancomycin from clindamycin given the risks of colitis. Otherwise continue rest of supportive care and treatment. Physical therapy to assess his functional status. Social Service consultation for discharge planning and safety evaluation at home. Discussed with the patient's nurse regarding care plan. Problems(with codes): (1) Cellulitis of both lower extremities Plan discussed with: Patient, Other JOSE GONZALEZ MD Jan 21, 2025 12:49
[2025-01-21] MEDS: FUROSEMIDE 40 MG/4 ML VIAL IV SCH (15:01)
[2025-01-21] MEDS: VANCOMYCIN 750MG KIT 100 ML IV SCH (16:52)
[2025-01-21] MEDS: MORPHINE SULFATE 4 MG/ML SYR/VIAL IV PRN (20:45)
[2025-01-21] MEDS: POTASSIUM CHL 10 Meq TABLET PO SCH (22:08)
[2025-01-22] VITALS (8 sets, daily range): BP systolic 107–133; BP diastolic 65–82; PULSE 69–91; RESP 16–19; TEMP 97.5–98.8; O2SAT 92–96
--- NOTE | 2025-01-22 01:08 | DVHSR ---
APPROVED REPORT EXAM: Two-dimensional and M-mode echocardiogram with Doppler and color Doppler. INDICATION Peripheral Edema RISK FACTORS Height: 5'4", Weight: 160 DIMENSIONS LVDd3.8 (3.8-5.7cm)LA (2D)2.1 (1.9-4.0cm)Aortic Root3.0 (2.0-3.7cm) LVDs2.5 (2.5-4.0cm)LA (MM) (1.9-4.0cm)Aortic Cusp Exc (1.5-2.0cm) EF (%) 63.0 (55-70%)Rt. Atrium (1.9-4.0cm)Asc. Aorta cm IVSd0.9 (0.7-1.1cm)RV (D) (1.8-2.4cm) Mitral Valve MitralMitral Stenosis E/A ratio0.02D MVAcm2 Aortic Valve Aortic ValveAortic Stenosis V10.88m/Tra Mean GR.4mmHg V21.41m/Tra Peak GR.8mmHg LVOT Diameter2.2 (1.8-2.4cm)Doppler AVA2.37cm2 Other Information Quality : Technically LimitedRhythm : Technically limited study due to body habitus. Conclusion MILD LVH AND MILD LV DIASTOLIC DYSFUNCTION DYSKINESIS OF IVS LV EF IS 65% AORTIC SCLEROSIS NO EFFUSION NORMAL RV FUNCTION
[2025-01-22] MEDS: ONDANSETRON HCL 4 MG/2 ML VIAL IV PRN (03:59)
[2025-01-22 06:07] LABS: Hematocrit 37.5 % (41.0-53.0); Hemoglobin 12.8 g/dL (13.5-17.5); Mean Corpuscular Hemoglobin 31.2 pg (28.0-32.0); Mean Corpuscular Volume 91.6 fL (80.0-100.0); Nucleated Red Blood Cells % 0.1 %
[2025-01-22 06:21] LABS: Calcium 9.2 mg/dL (8.7-10.4); Chloride 101 mmol/L (98-107); Potassium 4.0 mmol/L (3.5-5.1); Sodium 138 mmol/L (136-145)
[2025-01-22 06:22] LABS: Anion Gap 9 (5-15); Carbon Dioxide 28 mmol/L (20-31)
[2025-01-22 06:27] LABS: BUN/Creatinine Ratio 17.6 (10.0-20.0); Blood Urea Nitrogen 15 mg/dL (9-23); Glucose 92 mg/dL (74-106)
[2025-01-22] MEDS: FAMOTIDINE 20 MG TAB PO SCH (09:23)
--- NOTE | 2025-01-22 13:15 | DVHPN2 ---
Progress Note - Dictate Date Seen: Jan 22, 2025 Medical Necessity Reason Pt with a Central, PICC or Fol: No Subjective Patient diuresing well and leg swelling and redness has improved. Patient apparently is to do up to urinate yesterday and fell however no trauma identified. Denies any complaints at present. Asking when he can go home. vital signs Vital Sign Date Time Temp Pulse Resp B/P (MAP) Pulse Ox O2 Delivery O2 Flow Rate FiO2 01/22/25 09:00 97.5 91 17 109/82 (91) 92 97.5 01/22/25 08:10 Room Air* 0 21 Total Intake and Output 01/21/25 01/21/25 01/22/25 15:00 23:00 07:00 Intake Total 473 ml 866 ml 650 ml Output Total 1125 ml 1201 ml Balance 473 ml -259 ml -551 ml medications Current Medications Medications Dose Ordered Sig/Cami Route Start Time Stop Time Status Last Admin Dose Admin Acetaminophen/ Hydrocodone Bitart 1 tab Q4HP PRN PO 01/20/25 10:15 01/22/25 08:35 1 TAB Ondansetron HCl 4 mg Q4HP PRN IV 01/20/25 10:15 01/22/25 03:59 4 MG Enoxaparin Sodium 40 mg DAILY SC 01/21/25 10:00 01/22/25 09:24 40 MG Acetaminophen 650 mg Q6HP PRN PO 01/20/25 10:15 Morphine Sulfate 1 mg Q4HP PRN IV 01/20/25 12:00 01/22/25 04:00 1 MG Ceftriaxone Sodium 50 ml @ 100 mls/hr DAILY@09 IV 01/22/25 09:00 01/22/25 09:23 100 MLS/HR Famotidine 20 mg DAILY PO 01/22/25 10:00 01/22/25 09:23 20 MG Vancomycin HCl 0 ml @ 0 mls/hr UD IV 01/21/25 12:45 Furosemide 40 mg BIDD IV 01/21/25 12:45 01/22/25 06:19 40 MG Potassium Chloride 10 meq BID PO 01/21/25 22:00 01/22/25 09:24 10 MEQ Vancomycin HCl 100 ml @ 100 mls/hr Q12H IV 01/21/25 16:00 01/22/25 03:52 100 MLS/HR objective Alert awake oriented x3. HEENT neck supple no JVD. Heart regular rate rhythm S1-S2. Lungs fair air movement without rales wheezes. Abdomen obese soft positive bowel sounds. Extremities lower extremities notable for chronic venous stasis dermatitis and redness. Erythema edema in the lower extremities is improved. laboratory and microbiology Laboratory Tests 01/22/25 05:42 Test 01/22/25 05:42 Range/Units Serum Glucose 92 74-106 mg/dL Assessment/Plan Clinically improving. Continue IV diuresis along with the vancomycin/other antibiotic as he is on for another 24-48 hours. Fall precautions. Otherwise follow clinical management per clinical course. Discussed with the patient and nurse regarding care plan. Problems(with codes): (1) Cellulitis of both lower extremities Plan discussed with: Other JOSE GONZALEZ MD Jan 22, 2025 13:15
[2025-01-23] VITALS (8 sets, daily range): BP systolic 95–129; BP diastolic 60–85; PULSE 62–92; RESP 12–20; TEMP 97.6–98.4; O2SAT 91–100
[2025-01-23 03:22] LABS: Hematocrit 39.4 % (41.0-53.0); Hemoglobin 13.4 g/dL (13.5-17.5); Mean Corpuscular Hemoglobin 31.0 pg (28.0-32.0); Mean Corpuscular Volume 91.3 fL (80.0-100.0); Nucleated Red Blood Cells % 0.2 %
[2025-01-23] MEDS: VANCOMYCIN 500mg/100mL 100 ML IV SCH (15:47)
--- NOTE | 2025-01-23 16:26 | DVHPN2 ---
Subjective I am assuming the care of the patient from today onwards who was under the care of the my colleague. Patient's has bilateral lower extremity cellulitis which is improving. Changes from previous H/P or p: No Changes Musculoskeletal: leg pain Skin: Lesions Objective Vitals Vital Signs Date Time Temp Pulse Resp B/P (MAP) Pulse Ox O2 Delivery O2 Flow Rate FiO2 01/23/25 12:59 98.4 66 12 129/85 (100) 92 98.4 01/23/25 08:10 Room Air* 0 21 Intake/Output Intake and Output 01/23/25 07:00 Intake Total 2000 ml Output Total 1005 ml Balance 995 ml Intake Oral 1750 ml IV Total 250 ml Output Urine Total 1000 ml Stool Total 5 ml Exam HEENT pupils are reactive Neck is supple CV is S1-S2 regular rate and rhythm Respiratory diminished breath sounds bases GI positive bowel sound Extremity bilateral lower extremity cellulitis 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 no motor 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 Medications Current Medications Medications Dose Ordered Sig/Cami Route Start Time Stop Time Status Last Admin Dose Admin Acetaminophen/ Hydrocodone Bitart 1 tab Q4HP PRN PO 01/20/25 10:15 01/22/25 08:35 1 TAB Ondansetron HCl 4 mg Q4HP PRN IV 01/20/25 10:15 01/22/25 03:59 4 MG Enoxaparin Sodium 40 mg DAILY SC 01/21/25 10:00 01/23/25 09:28 40 MG Acetaminophen 650 mg Q6HP PRN PO 01/20/25 10:15 Morphine Sulfate 1 mg Q4HP PRN IV 01/20/25 12:00 01/22/25 04:00 1 MG Ceftriaxone Sodium 50 ml @ 100 mls/hr DAILY@09 IV 01/22/25 09:00 01/23/25 09:22 100 MLS/HR Famotidine 20 mg DAILY PO 01/22/25 10:00 01/23/25 09:28 20 MG Vancomycin HCl 0 ml @ 0 mls/hr UD IV 01/21/25 12:45 Furosemide 40 mg BIDD IV 01/21/25 12:45 01/23/25 06:05 40 MG Potassium Chloride 10 meq BID PO 01/21/25 22:00 01/23/25 09:28 10 MEQ Vancomycin HCl 100 ml @ 200 mls/hr Q12H IV 01/23/25 16:00 01/23/25 15:47 200 MLS/HR Laboratory Results Laboratory Tests 01/22/25 05:42 01/23/25 03:10 Urinalysis Test 01/20/25 23:00 Urine Color Light-yellow (Yellow) Urine Clarity Clear (Clear) Urine pH 6.0 (5.0-9.0) Urine Specific [place] 1.025 (1.001-1.035) Urine Protein Negative (Negative) Urine Ketones Negative (Negative) Urine Blood Negative /uL (Negative) Urine Nitrite Negative (Negative) Urine Bilirubin Negative (Negative) Urine Urobilinogen Normal mg/dL (Negative) Urine Leukocyte Esterase Negative /uL (Negative) Urine RBC 3 /hpf (0 - 3) Urine Microscopic WBC < 1 /HPF (0-3) Urine Squamous Epithelial Cells None seen /hpf (<5) Urine Bacteria None seen /hpf (None Seen) Urine Glucose Normal mg/dL (Normal) Microbiology Microbiology Date/Time Source Procedure Growth Status 01/20/25 10:13 Blood Blood Culture - Preliminary NO GROWTH AFTER 72 HOURS OF INCUBATION. Resulted Assessment/Plan Assessment/Plan 74-year-old male with a known history of chronic back pain, COPD, previous history of lumbar spine surgery, left eye blindness presented to the hospital with a bilateral lower extremity cellulitis worsening for weeks to months found to have 1. Bilateral lower extremity cellulitis without any evidence of fluid collection 2. Sepsis has been ruled out 3. History of chronic back pain 4. COPD not in exacerbation 5. Previous history of lumbar spine surgery. 6. Left eye blindness, right eye cataract surgery. -IV antibiotics, physical therapy evaluation and treatment, discharge plan. Plan discussed with: Patient My Orders Orders - JOVITA PETERS MD Procedure Category Date Status Time * Gleason Operator CONS 01/23/25 Transmitted Consult Date of Service: Jan 23, 2025 Billing Provider: JOVITA PETERS MD Common Visit Codes: [id number] INP/OBS CARE(MOD), NOT BILLABLE JOVITA PETERS MD Jan 23, 2025 16:25
[2025-01-24 05:00] VITALS: BP 111/67; PULSE 76; RESP 20; TEMP 97.9; O2SAT 93
[2025-01-24 06:32] LABS: Hematocrit 39.5 % (41.0-53.0); Hemoglobin 13.3 g/dL (13.5-17.5); Mean Corpuscular Hemoglobin 30.6 pg (28.0-32.0); Mean Corpuscular Volume 90.4 fL (80.0-100.0); Nucleated Red Blood Cells % 0.2 %
[2025-01-24 08:00] VITALS: PULSE 94; RESP 18; O2SAT 94
[2025-01-24 09:00] VITALS: BP 147/63; PULSE 94; RESP 18; TEMP 97.4; O2SAT 74
[2025-01-24 13:00] VITALS: BP 100/70; PULSE 65; RESP 12; TEMP 98.4; O2SAT 93
[2025-01-24] MEDS ORDERED: CEPH500C PO (16:43)
[2025-01-24] MEDS ORDERED: DOXY100C79 PO (16:43)
--- NOTE | 2025-01-24 16:51 | DVHDS2 ---
Discharge Summary Date of Admission Jan 20, 2025 at 10:15 Date of Discharge: Jan 24, 2025 Labs/Diagnostic Data: Laboratory Results Test 01/24/25 05:37 01/23/25 03:10 01/22/25 05:42 01/21/25 13:36 White Blood Count 4.9 10^3/uL (4.4-10.8) Red Blood Count 4.36 10^6/uL (4.5-5.90) Hemoglobin 13.3 g/dL (13.5-17.5) Hematocrit 39.5 % (41.0-53.0) Mean Corpuscular Volume 90.4 fL (80.0-100.0) Mean Corpuscular Hemoglobin 30.6 pg (28.0-32.0) Mean Corpuscular Hemoglobin Concent 33.8 g/dL (32.0-36.0) Red Cell Distribution Width 14.1 % (11.8-14.3) Platelet Count 263 10^3/uL (140-450) Mean Platelet Volume 8.2 fL (6.9-10.8) Neutrophils (%) (Auto) 57.7 % (37.0-80.0) Lymphocytes (%) (Auto) 24.6 % (10.0-50.0) Monocytes (%) (Auto) 11.2 % (0.0-12.0) Eosinophils (%) (Auto) 5.7 % (0.0-7.0) Basophils (%) (Auto) 0.8 % (0.0-2.0) Neutrophils # (Auto) 2.8 10 ^3/uL (1.6-8.6) Lymphocytes # (Auto) 1.2 10 ^3/uL (0.4-5.4) Monocytes # (Auto) 0.6 10 ^3/uL (0-1.3) Eosinophils # (Auto) 0.3 10 ^3/uL (0-0.8) Basophils # (Auto) 0 10 ^3/uL (0-0.2) Nucleated Red Blood Cells 0.2 % Creatinine 0.85 mg/dL (0.700-1.30) Glomerular Filtration Rate Calc 90 mL/min (>90) Vancomycin Level Trough 15.7 ug/mL (5-10) Sodium Level 138 mmol/L (136-145) Potassium Level 4.0 mmol/L (3.5-5.1) Chloride Level 101 mmol/L (98-107) Carbon Dioxide Level 28 mmol/L (20-31) Anion Gap 9 (5-15) Blood Urea Nitrogen 15 mg/dL (9-23) BUN/Creatinine Ratio 17.6 (10.0-20.0) Serum Glucose 92 mg/dL (74-106) Calcium Level 9.2 mg/dL (8.7-10.4) Random Vancomycin Level < 3.0 ug/mL (5-10) Test 01/21/25 04:40 01/20/25 23:00 01/20/25 10:13 Total Bilirubin 0.6 mg/dL (0.2-1.0) Aspartate Amino Transferase (AST) 30 U/L (13-40) Alanine Aminotransferase (ALT) 25 U/L (7-40) Alkaline Phosphatase 92 U/L (46-116) Total Protein 6.8 g/dL (5.7-8.2) Albumin 3.5 g/dL (3.2-4.8) Urine Color Light-yellow (Yellow) Urine Clarity Clear (Clear) Urine pH 6.0 (5.0-9.0) Urine Specific [place] 1.025 (1.001-1.035) Urine Protein Negative (Negative) Urine Ketones Negative (Negative) Urine Blood Negative /uL (Negative) Urine Nitrite Negative (Negative) Urine Bilirubin Negative (Negative) Urine Urobilinogen Normal mg/dL (Negative) Urine Leukocyte Esterase Negative /uL (Negative) Urine RBC 3 /hpf (0 - 3) Urine Microscopic WBC < 1 /HPF (0-3) Urine Squamous Epithelial Cells None seen /hpf (<5) Urine Bacteria None seen /hpf (None Seen) Urine Glucose Normal mg/dL (Normal) Erythrocyte Sedimentation Rate 81 mm/hr (0-20) Lactic Acid Level 1.0 mmol/L (0.4-2.0) C-Reactive Protein High Sensitivity 2.34 mg/dL (<1.0) B-Type Natriuretic Peptide 35.43 pg/mL (0-100) Other Laboratory Tests 01/24/25 05:37 01/22/25 05:42 Brief Hx & Hospital Course: 74-year-old male with a known history of chronic back pain, COPD, previous history of lumbar spine surgery, left eye blindness presented to the hospital with a bilateral lower extremity cellulitis worsening for weeks to months found to have bilateral lower extremity cellulitis without any evidence of fluid collection. Patient's sepsis has been ruled out. Patient also has a known COPD with a previous history of lumbar spine surgery. Patient has received IV antibiotics. Patient will be discharged on Keflex and doxycycline. patient is currently being discharged under stable condition with a close follow up as an outpatient with the PCP. Condition at Discharge: Stable Final Diagnosis/Problems List 74-year-old male with a known history of chronic back pain, COPD, previous history of lumbar spine surgery, left eye blindness presented to the hospital with a bilateral lower extremity cellulitis worsening for weeks to months found to have 1. Bilateral lower extremity cellulitis without any evidence of fluid collection 2. Sepsis has been ruled out 3. History of chronic back pain 4. COPD not in exacerbation 5. Previous history of lumbar spine surgery. 6. Left eye blindness, right eye cataract surgery. Discharge Disposition: Home with Health Services SNF Discharge Will this Physician continue t: No Discharge Instruct/Medications Diet: Cardiac 2g Na,low cholest Activity: No Restrictions, As Tolerated Follow Up/Referral: Follow up with the PCP in 1-2 weeks Medications: Keflex and doxy as prescribed Scheduled Cephalexin Monohydrate (Cephalexin), 1 CAP PO TID Doxycycline (Monohydrate) (Doxycycline), 100 MG PO BID Furosemide (Furosemide), 1 TAB PO DAILY, (Reported) Potassium Chloride (Potassium Chloride Cr), 1 TAB PO DAILY, (Reported) Scheduled PRN Quetiapine Fumerate (Seroquel), 100 MG PO DAILY PRN for MOOD STABILIZATION, (Reported) Discharge Statement: "Patient was advised to return to the ER or call 911 if any headaches, dizziness, shortness of breath, chest pain, abdominal pain, bleeding, fevers, or worsening of medical condition. Patient was counseled about treatment plan, medications, possible side effects, patientverbalized understanding. All questions were answered to the best of my ability. This discharge took greater then 30 minutes in planning, reviewing documentation, counseling the patient, and discussing with other team members." ASSESSMENT ASSESSMENT Assessment 74-year-old male with a known history of chronic back pain, COPD, previous history of lumbar spine surgery, left eye blindness presented to the hospital with a bilateral lower extremity cellulitis worsening for weeks to months found to have 1. Bilateral lower extremity cellulitis without any evidence of fluid collection 2. Sepsis has been ruled out 3. History of chronic back pain 4. COPD not in exacerbation 5. Previous history of lumbar spine surgery. 6. Left eye blindness, right eye cataract surgery. Date of Service: Jan 24, 2025 Billing Provider: JOVITA PETERS MD Common Visit Codes: 24116-IHR/OBS DISCH DAY >30min JOVITA PETERS MD Jan 24, 2025 16:51
[2025-01-24 17:00] VITALS: BP 114/77; PULSE 71; RESP 18; TEMP 97.8; O2SAT 90
[2025-01-24 17:17] VITALS: BP 132/94; PULSE 71; RESP 18; TEMP 98.4; O2SAT 93
== END 2025-01-24 18:35 | disposition home or self-care (01) | DRG 602 ==
LOC: ER 08:53 → EDBD 08:53 → OVERFLOW 10:15 → WEST WING 21:40
PROVIDERS: ADMIT Internal Medicine; ATTEND Hospitalist
DX: L03.115 Cellulitis of right lower limb (principal); R53.2 Functional quadriplegia; J44.9 Chronic obstructive pulmonary disease, unspecified; L03.116 Cellulitis of left lower limb; Z99.3 Dependence on wheelchair; H54.61 Unqualified visual loss, right eye, normal vision left eye; F17.210 Nicotine dependence, cigarettes, uncomplicated; G89.29 Other chronic pain; Z74.01 Bed confinement status; Z98.41 Cataract extraction status, right eye
CPT/HCPCS: 36415; 73700; 80048; 80053; 80202; 81001; 82565; 83605; 83880; 85025; 85652; 86141; 87040; 93306; 93970; 96365; 97163; G0378; J2405; J2470; J2543; J3490

== ENCOUNTER 2025-02-27 09:12 | Emergency (ER) | payer BC, MEDICAID ==
[~2025-02-27] VITALS: Ht 172.7 cm; Wt 63.0 kg
[~2025-02-27 09:12] MED LIST changes: +CEPH500C PO; +DOXY100C79 PO
--- NOTE | 2025-02-27 09:20 | ED.PDOC ---
Back pain HPI HPI Comments 74 y.o male presents to the ED via EMS for a chief complaint of right lateral neck pain radiating down his right arm x this morning. Patient has been sitting in his wheel chair looking at his computer all night, states intermittently will fall asleep leaning his head to the side. He denies any SOB, recent falls, nausea, vomiting, chest pain. He denies any medical history but is on Lasix and presents with erythema and swelling to lower extremity. Time Seen by MD: 09:12 Primary Care Provider: DENIES Reviewed Notes: Nurses Notes, Antenna Specialist Notes, Medications, Allergies Allergies: Coded Allergies: NO KNOWN ALLERGIES (Unverified , 01/11/19) Home Meds Active Scripts Doxycycline (Monohydrate) (Doxycycline) 100 Mg Cap, 100 MG PO BID for 7 Days, #14 CAP Prov:JOVITA PETERS MD 01/24/25 Cephalexin Monohydrate (Cephalexin) 500 Mg Cap, 1 CAP PO TID for 7 Days, #21 CAP Prov:JOVITA PETERS MD 01/24/25 Reported Medications Furosemide (Furosemide) 40 Mg Tab, 1 TAB PO DAILY HOLD IF BP < 90/60. 06/21/24 Quetiapine Fumerate (Seroquel) 50 Mg Tab, 100 MG PO DAILY PRN for MOOD STABILIZATION, TAB 06/21/24 Potassium Chloride (POTASSIUM CHLORIDE CR) 10 Meq Tb, 1 TAB PO DAILY 09/15/23 Information Source: Patient, Emergency Med Personnel Mode of Arrival: EMS Timing: Hours Duration: Since onset Location of Back pain: (R) Cervical Severity: Moderate Quality: Aching Onset: Other History of: Other Modifying Factors: Nothing Associated signs and symptoms: Other Past Medical History PAST MEDICAL HISTORY: COPD, Denies Surgical History (Other): abdomen (has an infusion pump), eye, and back Family History Family History: Reviewed,noncontributory to illness Social History Smoker: Cigarettes, Less Than 1 Pack/Day Alcohol: Denies ETOH Use Drugs: Denies Drug Use Lives In: Home Constitutional: denies: chills, diaphoresis, fatigue, fever, malaise, sweats, weakness, others EENTM: denies: blurred vision, double vision, ear bleeding, ear discharge, ear drainage, ear pain, ear ringing, eye pain, eye redness, hearing loss, mouth pain, mouth swelling, nasal discharge, nose bleeding, nose congestion, nose p ain, photophobia, tearing, throat pain, throat swelling, voice changes, others Respiratory: denies: cough, hemoptysis, orthopnea, SOB at rest, shortness of breath, SOB with excertion, stridor, wheezing, others Cardiovascular: denies: chest pain, dizzy spells, diaphoresis, Dyspnea on exertion, edema, irregular heart beat, left arm pain, lightheadedness, palpitations, PND, syncope, others Gastrointestinal: denies: abdomen distended, abdominal pain, blood streaked bowels, constipated, diarrhea, dysphagia, difficulty swallowing, hematemesis, melena, nausea, poor appetite, poor fluid intake, rectal bleeding, rectal pain, vomiting, others Genitourinary: denies: burning, dysuria, flank pain, frequency, hematuria, incontinence, penile discharge, penile sore, pain, testicle pain, testicle swelling, urgency, others Neurological: denies: dizziness, fainting, headache, left sided numbness, left sided weakness, numbness, paresthesia, pre-existing deficit, right sided numbness, right sided weakness, seizure, speech problems, tingling, tremors, weakness, others Musculoskeletal: reports: neck pain, others (right arm pain ); denies: back pain, gout, joint pain, joint swelling, muscle pain, muscle stiffness Integumetry: denies: bruises, change in color, change in hair/nails, dryness, laceration, lesions, lumps, rash, wounds, others Allergic/Immunocompromised: denies: Difficulty Healing, Frequent Infections, Hives, Itching, others Hematologic/Lymphatic: denies: anemia, blood clots, easy bleeding, easy bruising, swollen glands, others Endocrine: denies: excessive hunger, excessive sweating, excessive thirst, excessive urination, flushing, intolerance to cold, intolerance to heat, unexplained weight gain, unexplained weight loss, others Psychiatric: denies: anxiety, bipolar disorder, depression, hopeless, panic disorder, schizophrenia, sleepless, suicidal, others All Other Systems: Reviewed and Negative Physical Exam General Appearance: Moderate Distress HEENT: Normal ENT Inspection, Pharynx Normal, TMs Normal Neck: Limited Range of Motion, Normal Inspection, Supple, Tender Lateral (Tenderness to the right lateral region) Respiratory: Chest Non-Tender, Lungs Clear, No Accessory Muscle Use, No Respiratory Distress, Normal Breath Sounds Cardiovascular: No Edema, No JVD, No Murmur, No Gallop, Normal Peripheral Pulses, Regular Rate/Rhythm Breast Exam: Deferred Gastrointestinal: No Organomegaly, Non Tender, No Pulsatile Mass, Normal Bowel Sounds, Soft Genitalia: Deferred Pelvic: Deferred Rectal: Deferred Extremities: No calf tenderness, Normal capillary refill, Normal inspection, Normal range of motion, Non-tender, No pedal edema Musculoskeletal : Apperance: Normal 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 Was a procedure done?: No Back Pain Differential Dx Differential Diagnosis: Musculoskeletal Pain, Other (strain, sprain, arthritis. ) X-Ray, Labs, Meds, VS Vital Signs Date Time Temp Pulse Resp B/P (MAP) Pulse Ox O2 Delivery O2 Flow Rate FiO2 02/27/25 10:50 91 15 95/64 02/27/25 10:08 97.8 66 15 127/96 (106) 99 97.8 02/27/25 10:08 76 15 127/96 02/27/25 09:20 97.9 86 20 157/96 96 97.9 Lab Test 02/27/25 10:00 Range/Units Sodium Level 142 136-145 mmol/L Potassium Level 3.6 3.5-5.1 mmol/L Chloride Level 109 H 98-107 mmol/L Carbon Dioxide Level 26 20-31 mmol/L Anion Gap 7 5-15 Blood Urea Nitrogen 14 9-23 mg/dL Creatinine 0.78 0.700-1.30 mg/dL Glomerular Filtration Rate Calc 92 >90 mL/min BUN/Creatinine Ratio 17.9 10.0-20.0 Serum Glucose 84 74-106 mg/dL Calcium Level 9.5 8.7-10.4 mg/dL Current Medications Medications (Trade) Dose Ordered Sig/Cami Route Start Time Stop Time Status Last Admin Morphine Sulfate 4 mg ONCE ONCE IV 02/27/25 09:15 02/27/25 09:17 DC 02/27/25 10:08 Ondansetron HCl (Zofran) 4 mg ONCE ONCE IV 02/27/25 09:15 119/25 09:17 DC 02/27/25 10:01 CAT scan of the cervical spine shows: IMPRESSION: 1. No evidence of acute fracture in the cervical spine. 2. Reversal of the normal cervical lordosis with spondylolistheses at C3-C4, C4- C5, and C7-T 3. Degenerative disc disease and facet/ uncinate disease in the cervical spine as described above. 4. Additional findings as detailed above. The patient was given morphine 4 mg IV push for the pain The patient was given Zofran 4 mg IV push for the nausea The chemistry panel is within normal limits At this time, the patient is being admitted to the hospitalist Images Reviewed?: Images reviewed and evaluated by me Time of 1ST Reevaluation: 09:15 Reevaluation 1ST: Unchanged Patient Education/Counseling: Diagnosis, Treatment, Prognosis Family Education/Counseling: No Family Present SEPSIS Sepsis Screen Physician Orders Complete Blood Count (02/27/25 09:15) Urinalysis (02/27/25 09:15) Heplock Iv (02/27/25 09:15) Electrocardigram (02/27/25 09:15) Cervical Without Contrast (02/27/25 09:15) Vital Signs Date Time Temp Pulse Resp B/P (MAP) Pulse Ox O2 Delivery O2 Flow Rate FiO2 02/27/25 10:50 91 15 95/64 02/27/25 10:08 97.8 66 15 127/96 (106) 99 97.8 02/27/25 10:08 76 15 127/96 02/27/25 09:20 97.9 86 20 157/96 96 97.9 Medications Medications Dose Ordered Sig/Cami Route Start Time Stop Time Status Last Admin Dose Admin Morphine Sulfate 4 mg ONCE ONCE IV 02/27/25 09:15 02/27/25 09:17 DC 02/27/25 10:08 Ondansetron HCl 4 mg ONCE ONCE IV 02/27/25 09:15 02/27/25 09:17 DC 02/27/25 10:01 Departure 1 Departure Time of Disposition: 11:12 Impression: Primary Impression: Neck pain Additional Impressions: Right arm pain Generalized weakness Disposition: ADMITTED INPATIENT Admit to: Med Surg Condition: Fair Critical Care Note Critical Care Time?: No Stability Stability form required: Yes Unstable for transfer: ED Physician Assesment (Clinical assesment) I personally scribed for BARBARA GUERRERO MD ([email or web address]) on 02/27/25 at 09:19. Electronically submitted by Ying Pedersen ([facility]). BARBARA GUERRERO MD Feb 27, 2025 09:19
[2025-02-27] MEDS: ONDANSETRON HCL 4 MG/2 ML VIAL IV ONE (10:01)
[2025-02-27] MEDS: MORPHINE SULFATE 4 MG/ML SYR/VIAL IV ONE (10:08)
[2025-02-27 10:37] LABS: Potassium 3.6 mmol/L (3.5-5.1); Sodium 142 mmol/L (136-145)
[2025-02-27 10:38] LABS: Anion Gap 7 (5-15); Calcium 9.5 mg/dL (8.7-10.4); Carbon Dioxide 26 mmol/L (20-31)
[2025-02-27 10:43] LABS: BUN/Creatinine Ratio 17.9 (10.0-20.0); Blood Urea Nitrogen 14 mg/dL (9-23); Glucose 84 mg/dL (74-106)
[2025-02-27 10:54] LABS: Chloride 109 mmol/L (98-107)
--- NOTE | 2025-02-27 11:10 | DVH ---
CLINICAL HISTORY: right neck and arm pain COMPARISON: None TECHNIQUE: Axial CT images of the cervical spine were obtained without IV contrast. Coronal and sagittal reformatted images were obtained. All CT scans at this medical facility are performed using dose modulation techniques as appropriate to a performed exam including the following: Automated exposure control was utilized; adjustment of the MA and/or KV according to patient size; and use of iterative reconstruction technique. CTDIvol = 17.15 mGy DLP = 435.24 mGy-cm FINDINGS: Bones: Reversal of the normal cervical lordosis. Grade 1 anterolisthesis of C3 on C4 measures up to 4 mm. Grade 1 anterolisthesis of C4 on C5 measures up to 3 mm. Minimal retrolisthesis of C7 on T1. Vertebral body heights are maintained. Posterior elements are intact. No acute fracture. Multilevel moderate to severe disc space narrowing in the cervical spine with associated endplate sclerosis and endplate spurring. Multilevel facet and uncinate hypertrophy with areas of moderate neural foraminal stenosis. Paraspinal soft tissues: Prevertebral and paraspinal soft tissues are unremarkable. Other: Emphysematous changes in the lung apices. IMPRESSION: 1. No evidence of acute fracture in the cervical spine. 2. Reversal of the normal cervical lordosis with spondylolistheses at C3-C4, C4- C5, and C7-T 3. Degenerative disc disease and facet/ uncinate disease in the cervical spine as described above. 4. Additional findings as detailed above.
[2025-02-27 11:41] LABS: Hematocrit 42.1 % (41.0-53.0); Hemoglobin 13.9 g/dL (13.5-17.5); Mean Corpuscular Hemoglobin 30.4 pg (28.0-32.0); Mean Corpuscular Volume 92.1 fL (80.0-100.0); Nucleated Red Blood Cells % 0.2 %
[2025-02-27] MEDS ORDERED: HYDR-4902 PO (15:22)
--- NOTE | 2025-02-27 15:30 | DVHINCON2 ---
Date Seen: Feb 27, 2025 Ref[address] Phys[address] ER physician Dr. Bermeo. Reason for Consultation Right-sided neck pain last night. History of Present Illness 74-year-old male with a known history of bipolar disorder, COPD, BPH initially presented to the hospital with a right neck pain. Patient has stated that he was on the computer all night induced wheelchair. Then he was just having some nebs with the neck tilted to the right side. This morning he woke up with a right-sided neck pain and right arm pain. In the ER CT C-spine was done which s hows no evidence of any acute fracture besides [id number] degenerative disc disease. Patient is currently denies any right upper extremity weakness or numbness. Does complain of neck pain. Patient has stated that pain relieved with the morphine. Past Medical History Bipolar disorder, BPH COPD Past Surgical History None significant. Family History: FH: aneurysm G8 FATHER, FH: cancer G8 MOTHER, Malignant neoplasm of ovary G8 MOTHER, Seizure disorder G8 FATHER, Suicide G8 MOTHER, Allergies: Coded Allergies: NO KNOWN ALLERGIES (Unverified , 01/11/19) Home Meds Active Scripts Hydrocodone-Acetaminophen (Hydrocodone Bitartrate/AC 5-325 mg) 1 Tab Tab, 1 TAB PO Q8HP PRN, #10 TAB Prov:JOVITA PETERS MD 02/27/25 Doxycycline (Monohydrate) (Doxycycline) 100 Mg Cap, 100 MG PO BID for 7 Days, #14 CAP Prov:JOVITA PETERS MD 01/24/25 Cephalexin Monohydrate (Cephalexin) 500 Mg Cap, 1 CAP PO TID for 7 Days, #21 CAP Prov:JOVITA PETERS MD 01/24/25 Reported Medications Furosemide (Furosemide) 40 Mg Tab, 1 TAB PO DAILY HOLD IF BP < 90/60. 06/21/24 Quetiapine Fumerate (Seroquel) 50 Mg Tab, 100 MG PO DAILY PRN for MOOD STABILIZATION, TAB 06/21/24 Potassium Chloride (POTASSIUM CHLORIDE CR) 10 Meq Tb, 1 TAB PO DAILY 09/15/23 Review of Systems Twelve review of system are negative besides mentioned above. 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 Labs/Diagnostic Data Labs Test 02/27/25 11:08 02/27/25 10:00 Range/Units White Blood Count 10.3 4.4-10.8 10^3/uL Red Blood Count 4.57 4.5-5.90 10^6/uL Hemoglobin 13.9 13.5-17.5 g/dL Hematocrit 42.1 41.0-53.0 % Mean Corpuscular Volume 92.1 80.0-100.0 fL Mean Corpuscular Hemoglobin 30.4 28.0-32.0 pg Mean Corpuscular Hemoglobin Concent 33.0 32.0-36.0 g/dL Red Cell Distribution Width 15.1 H 11.8-14.3 % Platelet Count 314 140-450 10^3/uL Mean Platelet Volume 8.5 6.9-10.8 fL Neutrophils (%) (Auto) 78.6 37.0-80.0 % Lymphocytes (%) (Auto) 13.9 10.0-50.0 % Monocytes (%) (Auto) 6.2 0.0-12.0 % Eosinophils (%) (Auto) 0.9 0.0-7.0 % Basophils (%) (Auto) 0.4 0.0-2.0 % Neutrophils # (Auto) 8.1 1.6-8.6 10 ^3/uL Lymphocytes # (Auto) 1.4 0.4-5.4 10 ^3/uL Monocytes # (Auto) 0.6 0-1.3 10 ^3/uL Eosinophils # (Auto) 0.1 0-0.8 10 ^3/uL Basophils # (Auto) 0 0-0.2 10 ^3/uL Nucleated Red Blood Cells 0.2 % Sodium Level 142 136-145 mmol/L Potassium Level 3.6 3.5-5.1 mmol/L Chloride Level 109 H 98-107 mmol/L Carbon Dioxide Level 26 20-31 mmol/L Anion Gap 7 5-15 Blood Urea Nitrogen 14 9-23 mg/dL Creatinine 0.78 0.700-1.30 mg/dL Glomerular Filtration Rate Calc 92 >90 mL/min BUN/Creatinine Ratio 17.9 10.0-20.0 Serum Glucose 84 74-106 mg/dL Calcium Level 9.5 8.7-10.4 mg/dL Assessment 74-year-old male with a known history of COPD, bipolar disorder presented to the hospital with a right neck pain found to have 1. Right neck pain suspect musculoskeletal pain 2. Right arm pain currently resolved, no evidence of any right upper extremity weakness, patient denies any numbness in the right upper extremity 3. C-spine degenerative disc disease without any evidence of any acute fracture 4. COPD 5. Bipolar disorder -pain meds as needed, NSAIDs with a meals, outpatient MRI C-spine and follow up with the PCP. [facility] briefcase sewer has been called for this. -patient is currently understand verbalized understanding and agreeable to plan. Problems(with codes): (1) Right arm pain (2) Neck pain Plan discussed with: Patient, Other Date of Service: Feb 27, 2025 Billing Provider: JOVITA PETERS MD Common Visit Codes: NOT BILLABLE JOVITA PETERS MD Feb 27, 2025 15:30
[2025-02-27 15:50] VITALS: BP 107/51; PULSE 89; RESP 18; TEMP 98.7; O2SAT 95
== END 2025-02-27 15:52 | disposition home or self-care (01) ==
LOC: EDUNIT# 09:12 → ER 09:12 → EDBD 09:12 → ER 15:51
DX: M54.2 Cervicalgia (principal); M79.601 Pain in right arm; R53.1 Weakness; F17.210 Nicotine dependence, cigarettes, uncomplicated; Z79.899 Other long term (current) drug therapy
CPT/HCPCS: 36415; 72125; 80048; 85025; 96374; 96375; 99285; J2270; J2405